=== PATIENT | male | born 1940 | race Caucasian/White ===

== ENCOUNTER 2016-11-14 17:55 | Emergency (ER) | payer OTHER ==
[2016-11-14] MEDS ORDERED: SODIUM CHLORIDE 0.9% 1,000 ML IV ONE (19:45)
[2016-11-14] MEDS ORDERED: IPRATROPIUM/ALBUTEROL 3 ML NEB INH STA (19:45)
[2016-11-14] MEDS ORDERED: SODIUM CHLORIDE 0.9% 500 ML IV ONE (19:45)
[2016-11-14] MEDS ORDERED: DEXAMETHASONE 10 MG/ML VIAL IVP STA (19:46)
[2016-11-14] MEDS ORDERED: DEXAMETHASONE 10 MG/ML VIAL ONE (19:48)
[2016-11-14] MEDS ORDERED: IPRATROPIUM/ALBUTEROL 3 ML NEB INH ONE (20:17)
[2016-11-14] MEDS ORDERED: ALBUTEROL NEB 2.5 MG/3 ML INH STA (21:14)
[2016-11-14] MEDS ORDERED: ALBUTEROL NEB 2.5 MG/3 ML INH ONE (21:44)
== END 2016-11-14 22:18 | disposition home or self-care (01) ==
DX: J06.9 Acute upper respiratory infection, unspecified (principal); B97.89 Other viral agents as the cause of diseases classified elsewhere; E11.9 Type 2 diabetes mellitus without complications; I25.10 Atherosclerotic heart disease of native coronary artery without angina pectoris; I25.2 Old myocardial infarction; J44.9 Chronic obstructive pulmonary disease, unspecified; Z79.899 Other long term (current) drug therapy
CPT/HCPCS: 36415; 71020; 80048; 85025; 85610; 87275; 87276; 94640; 96374; 99283; 99284; J7613; J7620

== ENCOUNTER 2016-11-17 | Outpatient (CLI) | payer OTHER | END 2016-11-17 05:53 | disposition critical access hospital (66) | CPT/HCPCS: A0425; A0427 ==

== ENCOUNTER 2016-11-17 06:05 | Inpatient (IN) | payer MEDICARE, OTHER ==
[2016-11-17] MEDS ORDERED: METOPROLOL 5 MG/5 ML VIAL IVP STA (07:13)
[2016-11-17] MEDS ORDERED: METOPROLOL 5 MG/5 ML VIAL IVP ONE (07:18)
[2016-11-17] MEDS ORDERED: methylPREDNISolone SUCCINATE 125 MG/2 ML VIAL IVP STA (07:20)
[2016-11-17] MEDS ORDERED: methylPREDNISolone SUCCINATE 125 MG/2 ML VIAL IVP ONE (07:21)
[2016-11-17] MEDS ORDERED: SODIUM CHLORIDE 0.9% 1,000 ML IV ONE (07:52)
[2016-11-17] MEDS ORDERED: OSELTAMIVIR 75 MG CAPSULE PO STA (08:06)
[2016-11-17] MEDS ORDERED: OSELTAMIVIR 75 MG CAPSULE PO ONE (08:13)
[2016-11-17] MEDS ORDERED: IOPAMIDOL-300 100 ML VIAL IVP ONE (08:19)
[2016-11-17] MEDS ORDERED: BENZONATATE 100 MG CAPSULE PO PRN (09:57)
[2016-11-17] MEDS ORDERED: ACETAMINOPHEN 325 MG TABLET PO PRN (09:59)
[2016-11-17] MEDS ORDERED: PROCHLORPERAZINE 10 MG/2 ML VIAL IVP PRN (09:59)
[2016-11-17] MEDS ORDERED: HYDROcod/ACETAM 5/325 MG TABLET PO PRN (09:59)
[2016-11-17] MEDS ORDERED: IPRATROPIUM/ALBUTEROL 3 ML NEB INH PRN (09:59)
[2016-11-17] MEDS ORDERED: HYDROcod/ACETAM 10 MG/325 MG TABLET PO PRN (09:59)
[2016-11-17] MEDS ORDERED: ONDANSETRON 4 MG/2 ML VIAL IVP PRN (09:59)
[2016-11-17] MEDS: IPRATROPIUM/ALBUTEROL 3 ML NEB INH SCH ×3 (12:30→20:37)
[2016-11-17] MEDS: methylPREDNISolone SUCCINATE 40 MG/ML VIAL IVP SCH ×3 (13:17→22:19)
[2016-11-17] MEDS: WARFARIN 5 MG TABLET PO SCH (13:18)
[2016-11-17] MEDS: DOXYCYCLINE 100 MG TABLET PO SCH ×2 (13:18→22:19)
[2016-11-17] MEDS: CARVEDILOL 12.5 MG TABLET PO SCH (13:18)
[2016-11-17] MEDS: SPIRONOLACTONE 25 MG TABLET PO SCH (13:18)
[2016-11-17] MEDS: SODIUM CHLORIDE FLUSH 0.9% 10 ML SYRINGE IVP SCH ×2 (13:26→22:21)
[2016-11-17] MEDS: INSULIN ASPART 300 UNIT/3 ML PEN SUBQ SCH ×3 (13:28→22:20)
[2016-11-17] MEDS: FORMOTEROL FUMARATE NEB 20 MCG/2 ML INH SCH (20:37)
[2016-11-17] MEDS: BUDESONIDE 0.5 MG/2 ML NEB INH SCH (20:37)
[2016-11-17] MEDS: ATORVASTATIN 40 MG TABLET PO SCH (22:16)
[2016-11-17] MEDS: MESALAMINE 400 MG CAPSULE PO SCH (22:17)
[2016-11-17] MEDS: OSELTAMIVIR 75 MG CAPSULE PO SCH (22:18)
[2016-11-17] MEDS: GABAPENTIN 300 MG CAPSULE PO SCH (22:18)
[2016-11-18] MEDS: methylPREDNISolone SUCCINATE 40 MG/ML VIAL IVP SCH ×3 (06:14→21:26)
[2016-11-18] MEDS: PANTOPRAZOLE 40 MG TABLET PO SCH (06:14)
[2016-11-18] MEDS: MESALAMINE 400 MG CAPSULE PO SCH ×3 (06:21→14:08)
[2016-11-18] MEDS: SODIUM CHLORIDE FLUSH 0.9% 10 ML SYRINGE IVP SCH ×3 (06:23→21:28)
[2016-11-18] MEDS: SODIUM CHLORIDE FLUSH 0.9% 10 ML SYRINGE IVP PRN ×3 (06:24→21:28)
[2016-11-18] MEDS: INSULIN ASPART 300 UNIT/3 ML PEN SUBQ SCH ×5 (08:10→21:27)
[2016-11-18] MEDS: DOXYCYCLINE 100 MG TABLET PO SCH ×2 (09:58→21:25)
[2016-11-18] MEDS: CARVEDILOL 12.5 MG TABLET PO SCH (09:58)
[2016-11-18] MEDS: FUROSEMIDE 40 MG TABLET PO SCH (09:58)
[2016-11-18] MEDS: ASPIRIN EC 81 MG TABLET PO SCH (09:58)
[2016-11-18] MEDS: OSELTAMIVIR 75 MG CAPSULE PO SCH ×2 (09:59→21:26)
[2016-11-18] MEDS: POLYETHYLENE GLYCOL 3350 17 GM PACKET PO SCH (09:59)
[2016-11-18] MEDS: SPIRONOLACTONE 25 MG TABLET PO SCH (09:59)
[2016-11-18] MEDS: GABAPENTIN 300 MG CAPSULE PO SCH ×2 (09:59→21:25)
[2016-11-18] MEDS: BUDESONIDE 0.5 MG/2 ML NEB INH SCH ×2 (10:35→20:53)
[2016-11-18] MEDS: IPRATROPIUM/ALBUTEROL 3 ML NEB INH SCH ×4 (10:35→20:54)
[2016-11-18] MEDS: FORMOTEROL FUMARATE NEB 20 MCG/2 ML INH SCH ×2 (10:36→20:54)
[2016-11-18] MEDS: LISINOPRIL 20 MG TABLET PO SCH (12:25)
[2016-11-18] MEDS ORDERED: INSULIN ASPART 300 UNIT/3 ML PEN SUBQ ONE (13:00)
[2016-11-18] MEDS: WARFARIN 5 MG TABLET PO SCH (14:04)
[2016-11-18] MEDS ORDERED: INSULIN GLARGINE 300 UNIT/3 ML PEN SUBQ SCH (21:00)
[2016-11-18] MEDS: ATORVASTATIN 40 MG TABLET PO SCH (21:25)
[2016-11-19] MEDS: SODIUM CHLORIDE FLUSH 0.9% 10 ML SYRINGE IVP SCH ×3 (06:18→21:52)
[2016-11-19] MEDS: PANTOPRAZOLE 40 MG TABLET PO SCH (06:18)
[2016-11-19] MEDS: methylPREDNISolone SUCCINATE 40 MG/ML VIAL IVP SCH ×3 (06:18→21:52)
[2016-11-19] MEDS: IPRATROPIUM/ALBUTEROL 3 ML NEB INH SCH ×4 (07:01→20:53)
[2016-11-19] MEDS: BUDESONIDE 0.5 MG/2 ML NEB INH SCH ×2 (07:01→20:53)
[2016-11-19] MEDS: FORMOTEROL FUMARATE NEB 20 MCG/2 ML INH SCH ×2 (07:02→20:53)
[2016-11-19] MEDS: INSULIN ASPART 300 UNIT/3 ML PEN SUBQ SCH ×7 (08:30→20:36)
[2016-11-19] MEDS: OSELTAMIVIR 75 MG CAPSULE PO SCH ×2 (08:31→20:37)
[2016-11-19] MEDS: GABAPENTIN 300 MG CAPSULE PO SCH ×2 (08:31→20:37)
[2016-11-19] MEDS: ASPIRIN EC 81 MG TABLET PO SCH (08:31)
[2016-11-19] MEDS: MESALAMINE 400 MG CAPSULE PO SCH ×2 (08:32→20:39)
[2016-11-19] MEDS: SPIRONOLACTONE 25 MG TABLET PO SCH (08:32)
[2016-11-19] MEDS: FUROSEMIDE 40 MG TABLET PO SCH (08:32)
[2016-11-19] MEDS: CARVEDILOL 12.5 MG TABLET PO SCH (08:32)
[2016-11-19] MEDS: DOXYCYCLINE 100 MG TABLET PO SCH ×2 (08:32→20:37)
[2016-11-19] MEDS: POLYETHYLENE GLYCOL 3350 17 GM PACKET PO SCH (08:33)
[2016-11-19] MEDS: LISINOPRIL 20 MG TABLET PO SCH (08:43)
[2016-11-19] MEDS: WARFARIN 5 MG TABLET PO SCH (11:47)
[2016-11-19] MEDS: SODIUM CHLORIDE FLUSH 0.9% 10 ML SYRINGE IVP PRN ×2 (14:55→21:52)
[2016-11-19] MEDS: ATORVASTATIN 40 MG TABLET PO SCH (20:37)
[2016-11-19] MEDS: INSULIN GLARGINE 300 UNIT/3 ML PEN SUBQ SCH (20:37)
[2016-11-19] MEDS ORDERED: MELATONIN 50 MG PO PRN (23:50)
[2016-11-20] MEDS: PANTOPRAZOLE 40 MG TABLET PO SCH (06:19)
[2016-11-20] MEDS: SODIUM CHLORIDE FLUSH 0.9% 10 ML SYRINGE IVP SCH ×3 (06:19→21:39)
[2016-11-20] MEDS: methylPREDNISolone SUCCINATE 40 MG/ML VIAL IVP SCH ×3 (06:19→21:36)
[2016-11-20] MEDS: INSULIN ASPART 300 UNIT/3 ML PEN SUBQ SCH ×7 (08:13→21:41)
[2016-11-20] MEDS: ASPIRIN EC 81 MG TABLET PO SCH (08:17)
[2016-11-20] MEDS: GABAPENTIN 300 MG CAPSULE PO SCH ×2 (08:18→21:36)
[2016-11-20] MEDS: FUROSEMIDE 40 MG TABLET PO SCH (08:18)
[2016-11-20] MEDS: DOXYCYCLINE 100 MG TABLET PO SCH ×2 (08:18→21:36)
[2016-11-20] MEDS: OSELTAMIVIR 75 MG CAPSULE PO SCH ×2 (08:18→21:36)
[2016-11-20] MEDS: CARVEDILOL 12.5 MG TABLET PO SCH (08:18)
[2016-11-20] MEDS: POLYETHYLENE GLYCOL 3350 17 GM PACKET PO SCH (08:19)
[2016-11-20] MEDS: SPIRONOLACTONE 25 MG TABLET PO SCH (08:26)
[2016-11-20] MEDS: LISINOPRIL 20 MG TABLET PO SCH (08:26)
[2016-11-20] MEDS: MESALAMINE 400 MG CAPSULE PO SCH ×2 (08:32→21:35)
[2016-11-20] MEDS: FORMOTEROL FUMARATE NEB 20 MCG/2 ML INH SCH ×2 (09:10→20:20)
[2016-11-20] MEDS: IPRATROPIUM/ALBUTEROL 3 ML NEB INH SCH ×4 (09:10→20:20)
[2016-11-20] MEDS: BUDESONIDE 0.5 MG/2 ML NEB INH SCH ×2 (09:10→20:20)
[2016-11-20] MEDS: WARFARIN 5 MG TABLET PO SCH (13:11)
[2016-11-20] MEDS ORDERED: MELATONIN 5 MG PO PRN (17:55)
[2016-11-20] MEDS: ATORVASTATIN 40 MG TABLET PO SCH (21:36)
[2016-11-20] MEDS: INSULIN GLARGINE 300 UNIT/3 ML PEN SUBQ SCH (21:40)
[2016-11-21] MEDS: methylPREDNISolone SUCCINATE 40 MG/ML VIAL IVP SCH ×2 (05:23→13:31)
[2016-11-21] MEDS: SODIUM CHLORIDE FLUSH 0.9% 10 ML SYRINGE IVP SCH ×2 (05:24→13:31)
[2016-11-21] MEDS: PANTOPRAZOLE 40 MG TABLET PO SCH (06:08)
[2016-11-21] MEDS: BUDESONIDE 0.5 MG/2 ML NEB INH SCH (07:30)
[2016-11-21] MEDS: IPRATROPIUM/ALBUTEROL 3 ML NEB INH SCH ×2 (07:30→11:20)
[2016-11-21] MEDS: FORMOTEROL FUMARATE NEB 20 MCG/2 ML INH SCH (07:30)
[2016-11-21] MEDS: INSULIN ASPART 300 UNIT/3 ML PEN SUBQ SCH ×4 (08:26→12:26)
[2016-11-21] MEDS: SPIRONOLACTONE 25 MG TABLET PO SCH (08:28)
[2016-11-21] MEDS: CARVEDILOL 12.5 MG TABLET PO SCH (08:28)
[2016-11-21] MEDS: OSELTAMIVIR 75 MG CAPSULE PO SCH (08:28)
[2016-11-21] MEDS: ASPIRIN EC 81 MG TABLET PO SCH (08:28)
[2016-11-21] MEDS: DOXYCYCLINE 100 MG TABLET PO SCH (08:28)
[2016-11-21] MEDS: GABAPENTIN 300 MG CAPSULE PO SCH (08:28)
[2016-11-21] MEDS: LISINOPRIL 20 MG TABLET PO SCH (08:28)
[2016-11-21] MEDS: FUROSEMIDE 40 MG TABLET PO SCH (08:28)
[2016-11-21] MEDS: POLYETHYLENE GLYCOL 3350 17 GM PACKET PO SCH (08:29)
[2016-11-21] MEDS: MESALAMINE 400 MG CAPSULE PO SCH (08:48)
[2016-11-21] MEDS: WARFARIN 5 MG TABLET PO SCH (10:58)
== END 2016-11-21 16:30 | disposition home or self-care (01) | DRG 190 ==
DX: J44.1 Chronic obstructive pulmonary disease with (acute) exacerbation (principal); I44.7 Left bundle-branch block, unspecified; I48.0 Paroxysmal atrial fibrillation; J96.01 Acute respiratory failure with hypoxia; J44.9 Chronic obstructive pulmonary disease, unspecified; K50.90 Crohn's disease, unspecified, without complications; R91.8 Other nonspecific abnormal finding of lung field; W19.XXXA Unspecified fall, initial encounter; J10.1 Influenza due to other identified influenza virus with other respiratory manifestations; R09.02 Hypoxemia; I48.91 Unspecified atrial fibrillation; I25.2 Old myocardial infarction; I50.9 Heart failure, unspecified; E11.9 Type 2 diabetes mellitus without complications; I71.2 Thoracic aortic aneurysm, without rupture; I25.10 Atherosclerotic heart disease of native coronary artery without angina pectoris; Z79.01 Long term (current) use of anticoagulants; Z79.899 Other long term (current) drug therapy; Z86.73 Personal history of transient ischemic attack (TIA), and cerebral infarction without residual deficits; Z79.84 Long term (current) use of oral hypoglycemic drugs; Z79.82 Long term (current) use of aspirin; Z87.891 Personal history of nicotine dependence

== ENCOUNTER 2017-05-24 10:32 | Emergency (ER) | payer MEDICARE ==
--- NOTE | 2017-05-24 11:05 | XRAY Preliminary Report ---
Exam: XR Chest 2 View PA/LAT IMPRESSION: 1. No acute abnormality of the chest. 2. Stable hyperinflation. 3. Peribronchial thickening, left greater than right, without significant change. [facility] SITE ID: [id number]
--- NOTE | 2017-05-24 11:07 | XRAY Report ---
EXAM: CHEST RADIOGRAPHY EXAM DATE: 05/24/2017 10:51 AM. CLINICAL HISTORY: Shortness of breath. COMPARISON: Single view 11/17/2016. Most recent two-view exam 11/14/2016. TECHNIQUE: 2 views. FINDINGS: Lungs/Pleura: Stable bilateral pulmonary hyperinflation. No acute infiltrate, pleural effusion or pne umothorax. Mild bilateral central and left infrahilar peribronchial thickening. Mediastinum: Heart and mediastinal contours are unremarkable. Other: None. IMPRESSION: 1. No acute abnormality of the chest. 2. Stable hyperinflation. 3. Peribronchial thickening, left greater than right, without significant change. [facility] Referring Provider Line: [phone] SITE ID: [id number]
--- NOTE | 2017-05-24 12:24 | ED Physician Documentation ---
PD HPI URI - Stated complaint Stated Complaint: SOA - Chief complaint Chief Complaint: Resp - History obtained from History obtained from: Patient - History of Present Illness Timing - onset: How many weeks ago (1) Timing duration: Weeks (1) Timing details: Gradual onset, Still present Associated symptoms: Chills, Sore throat, Productive cough, Dyspnea. No: Chest pain, NVD Contributing factors: No: Sick contact, Travel, Immunocompromised Improves by: MDI/nebulizer. No: Medication Worsened by: Activity Similar symptoms before: Diagnosis (COPD, bronchitis, pneumonia.) Recently seen: Clinic (saw PMD yesterday and got Rx for medrol dose pack, but feeling increased sputum and dyspnea today.) Review of Systems Constitutional: reports: Chills, Myalgias. denies: Fever Nose: denies: Rhinorrhea / runny nose, Congestion Throat: denies: Sore throat Cardiac: denies: Chest pain / pressure Respiratory: reports: Dyspnea, Cough, Wheezing GI: denies: Vomiting, Diarrhea Skin: denies: Rash Musculoskeletal: denies: Extremity swelling PD PAST MEDICAL HISTORY - Past Medical History Cardiovascular: Coronary artery disease, [place] Respiratory: COPD Neuro: None Endocrine/Autoimmune: Type 2 diabetes GI: GERD : Nocturia, Frequency - Past Surgical History Past Surgical History: Yes - Present Medications Home Medications: Ambulatory Orders Medication Instructions Recorded Confirmed Carvedilol 12.5 mg PO DAILY 11/14/16 05/24/17 Lisinopril 40 mg PO DAILY 11/14/16 05/24/17 Spironolactone [Aldactone] 25 mg PO DAILY 11/14/16 05/24/17 Albuterol 2.5 mg INH BID 11/17/16 05/24/17 Albuterol Sulfate 2 mg PO TID 11/17/16 05/24/17 Aspirin [Aspirin EC] 81 mg PO DAILY 11/17/16 05/24/17 Atorvastatin Calcium [Lipitor] 40 mg PO QPM 11/17/16 05/24/17 Furosemide [Lasix] 40 mg PO DAILY 11/17/16 05/24/17 Gabapentin [Neurontin] 300 mg PO BID 11/17/16 05/24/17 Glipizide [Glipizide ER] 10 mg PO BID 11/17/16 05/24/17 Ipratropium/Albuterol [Combivent 1 puffs INH QID 11/17/16 05/24/17 Respimat] Metformin HCl [Glucophage] 1,000 mg PO BID 11/17/16 05/24/17 Zinc 50 mg PO DAILY 11/17/16 05/24/17 Apixaban [Eliquis] 1 tab PO BID 05/24/17 05/24/17 Benzonatate [Tessalon] 100 mg PO TID PRN #25 capsule 05/24/17 Doxycycline Hyclate 100 mg PO BID #14 tablet 05/24/17 Ipratropium [Atrovent] 0.2 mg INH TID #30 neb 05/24/17 Methylprednisolone 1 tab PO TID 05/24/17 05/24/17 - Allergies Allergies/Adverse Reactions: Allergies Allergy/AdvReac Type Severity Reaction Status Date / Time Sulfa (Sulfonamide Allergy Unknown Verified 05/24/17 11:13 Antibiotics) - Social History Does the pt smoke?: No Smoking Status: Never smoker Does the pt drink ETOH?: Yes Does the pt have substance abuse?: No - Immunizations Immunizations are current?: Yes - POLST Patient has POLST: No PD ED PE NORMAL - Vitals Vital signs reviewed: Yes - General General: Alert and oriented X 3, No acute distress, Well developed/nourished - HEENT HEENT: Ears normal, Pharynx benign - Neck Neck: Supple, no meningeal sign, No adenopathy - Cardiac Cardiac: RRR, No murmur - Respiratory Respiratory: No respiratory distress, Other (scattered wheezes; no coarse sounds. no wrok of breathing. ) - Abdomen Abdomen: Soft, Non tender - Derm Derm: Normal color, Warm and dry - Neuro Neuro: Alert and oriented X 3, No motor deficit, Normal speech Results - Vitals Vitals: Vital Signs - 24 hr 05/24/17 05/24/17 05/24/17 10:37 11:34 12:48 Temperature 36.6 C 37.2 C Heart Rate 72 65 72 Respiratory 20 18 Rate Blood Pressure 186/84 H 151/72 H O2 Saturation 93 95 95 Oxygen O2 Source Nasal cannula - Rads (name of study) chest Radiology: Prelim report reviewed PD MEDICAL DECISION MAKING - ED course Complexity details: reviewed results, considered differential (not looking too bad and sats adequate. CXR without infiltrate.), d/w patient Departure - Departure Disposition: 01 Home, Self Care Clinical Impression: Moderate COPD (chronic obstructive pulmonary disease), Bronchitis Dyspnea Qualifiers: Dyspnea type: dyspnea on exertion Qualified Code(s): R06.09 - Other forms of dyspnea Condition: Stable Record reviewed to determine appropriate education?: Yes Instructions: ED COPD Flare, ED Upper Resp Infec Abx Tx Follow-Up: Urbano Friedman MD [Primary Care Provider] - Prescriptions: Ipratropium [Atrovent] 0.2 mg INH TID #30 neb Doxycycline Hyclate 100 mg PO BID #14 tablet Benzonatate [Tessalon] 100 mg PO TID PRN #25 capsule PRN Reason: Cough Comments: Continue usual medications. Add ipratropium to your albuterol for nebulizer 2- 3 times a day. Continue the steroid prescription from your primary care provider. Add doxycycline antibiotic for presumed bacterial infection. Use Tessalon if needed for cough. Recheck if not improving over the next few days and return sooner if worse. Discharge Date/Time: 05/24/17 12:56
[2017-05-24] MEDS ORDERED: BENZONATATE 100 MG CAPSULE PO STA (12:36)
[2017-05-24] MEDS ORDERED: DEXAMETHASONE 10 MG/ML VIAL PO STA (12:36)
[2017-05-24] MEDS ORDERED: DEXAMETHASONE 10 MG/ML VIAL ONE (12:48)
[2017-05-24] MEDS ORDERED: BENZONATATE 100 MG CAPSULE PO ONE (12:48)
[2017-05-24 12:50] VITALS: BP 151/72
== END 2017-05-24 12:56 | disposition home or self-care (01) ==
LOC: ED 10:32
DX: J44.9 Chronic obstructive pulmonary disease, unspecified (principal); I25.10 Atherosclerotic heart disease of native coronary artery without angina pectoris; I25.2 Old myocardial infarction; E11.9 Type 2 diabetes mellitus without complications; Z79.84 Long term (current) use of oral hypoglycemic drugs; K21.9 Gastro-esophageal reflux disease without esophagitis
CPT/HCPCS: 71020; 99283; A9270

== ENCOUNTER 2020-02-09 09:57 | Outpatient (CLI) | payer MEDICARE, OTHER ==
[2020-02-09 14:17] LABS: BASOPHILS % (AUTO) 0.6 %; EOSINOPHILS # (AUTO) 0.2 10^3/uL (0.0-0.7); EOSINOPHILS % (AUTO) 2.4 %; HGB - HEMOGLOBIN 15.7 g/dL (14.0-18.0); LYMPHOCYTES # (AUTO) 1.4 10^3/uL (1.5-3.5); LYMPHOCYTES % (AUTO) 20.8 %; MEAN CORPUSCULAR HGB CONC 32.2 g/dL (32.0-36.0); MEAN PLATELET VOLUME 10.9 fL (7.4-11.4); MONOCYTES # (AUTO) 0.6 10^3/uL (0.0-1.0); MONOCYTES % (AUTO) 8.2 %; NEUTROPHILS # (AUTO) 4.5 10^3/uL (1.5-6.6); NEUTROPHILS % (AUTO) 67.7 %; PLT - PLATELET COUNT 210 10^3/uL (130-450); RED BLOOD COUNT 5.42 10^6/uL (4.70-6.10); RED CELL DISTRIBUTION WIDTH 13.9 % (12.0-15.0); WHITE BLOOD COUNT 6.7 x10^3/uL (4.8-10.8)
[2020-02-09 14:19] LABS: ALBUMIN/GLOBULIN RATIO 1.3 (1.0-2.2); BILIRUBIN,TOTAL 0.9 mg/dL (0.2-1.0); CALCIUM 9.4 mg/dL (8.5-10.3); CREATININE 0.7 mg/dL (0.6-1.2); TOTAL PROTEIN 7.1 g/dL (6.7-8.2)
[2020-02-09 14:36] LABS: THYROID STIMULATING HORMONE 3.77 uIU/mL (0.34-5.60)
[2020-02-09 14:38] LABS: FREE T3 3.09 pg/mL (2.5-3.9); FREE T4 (FREE THYROXINE) 0.84 ng/dL (0.58-1.64)
[2020-02-09 14:49] LABS: HB2 TOTAL 16.3 g/dL; HEMOGLOBIN A1C 0.74 g/dL; HEMOGLOBIN A1C % 6.3 % (4.6-6.2)
--- NOTE | 2020-02-10 00:05 | XRAY Report ---
Reason: RESPIRATORY CRACKLES, COPD Procedure Date: 02/09/2020 Accession Number: [id number] / [id number] Procedure: WCP - Chest 2 View X-Ray CPT Code: 46089 Final Report FULL RESULT: EXAM: CHEST RADIOGRAPHY EXAM DATE: 02/09/2020 09:57 AM. CLINICAL HISTORY: RESPIRATORY CRACKLES, COPD. COMPARISON: CHEST 2 VIEW PA/LAT 05/24/2017 10:42 AM. TECHNIQUE: 2 views. FINDINGS: Lungs/Pleura: No consolidation, focal airspace disease, pleural effusion or pneumothorax. Minimal right base atelectasis or scarring. Hyperinflated lungs. Mediastinum: Heart and mediastinal contours are unremarkable. IMPRESSION: COPD. No acute cardiopulmonary disease seen. [facility]
== END 2020-02-09 09:58 | disposition home or self-care (01) ==
LOC: DI.WCP 09:57
PROVIDERS: ATTEND Family Medicine
DX: J44.9 Chronic obstructive pulmonary disease, unspecified (principal); R09.89 Other specified symptoms and signs involving the circulatory and respiratory systems; E11.51 Type 2 diabetes mellitus with diabetic peripheral angiopathy without gangrene; I48.20 Chronic atrial fibrillation, unspecified; N40.0 Benign prostatic hyperplasia without lower urinary tract symptoms
CPT/HCPCS: 36415; 71046; 80053; 83036; 83880; 84439; 84443; 84481; 85025

== ENCOUNTER 2020-04-12 09:21 | Outpatient (CLI) | payer OTHER ==
[2020-04-12 12:52] LABS: CHOL/HDL RATIO 3.7 (<5.0); CHOLESTEROL 157 mg/dL; HDL CHOLESTEROL 42 mg/dL; LDL CHOLESTEROL,CALCULATED 101 mg/dL; LDL/HDL RATIO 2.4 (<3.6); VLDL CHOLESTEROL 14 mg/dL
== END 2020-04-12 23:59 | disposition home or self-care (01) ==
LOC: LAB.WCP 09:21
PROVIDERS: ATTEND Family Medicine
DX: E78.5 Hyperlipidemia, unspecified (principal)
CPT/HCPCS: 36415; 80061; 83721

== ENCOUNTER 2020-09-03 07:00 | Outpatient (CLI) | payer OTHER ==
[2020-09-03 18:19] LABS: CALCIUM 10.2 mg/dL (8.5-10.3); CREATININE 0.8 mg/dL (0.6-1.2)
[2020-09-03 19:55] LABS: HEMOGLOBIN A1c% 6.2 % (4.27-6.07)
== END 2020-09-03 23:59 | disposition home or self-care (01) ==
LOC: LAB.WCP 07:00
PROVIDERS: ATTEND Nurse Practitioner Family
DX: E11.59 Type 2 diabetes mellitus with other circulatory complications (principal)
CPT/HCPCS: 36415; 80048; 83036

== ENCOUNTER 2020-10-05 15:02 | Outpatient (CLI) | payer OTHER ==
--- NOTE | 2020-10-05 15:25 | XRAY Report ---
PROCEDURE: Chest 2 View X-Ray INDICATIONS: COUGH, COPD TECHNIQUE: 2 view(s) of the chest. COMPARISON: None. FINDINGS: Surgical changes and devices: None. Lungs and pleura: Hyperexpanded lungs with flattened hemidiaphragms, indicative of COPD. Mild-to-mod erate emphysematous changes in the lung apices. No focal consolidation. No pleural effusion or pneumo thorax. Mediastinum: Mediastinal contours are normal. Heart size is normal. Bones and chest wall: No suspicious bony abnormalities. Soft tissues appear unremarkable. IMPRESSION: No acute process demonstrated. Findings of COPD and mild to moderate emphysematous allison e. Reviewed by: Adalid Perez MD on 10/05/2020 3:24 PM PST Approved by: Adalid Perez MD on 10/05/2020 3:24 PM PST Station ID: [id number]
--- OUTSIDE RECORDS SUMMARY | 2020-10-06 10:41 | EXTERNAL MEDICAL SUMMARY RPT | Continuity of Care Document ---
:1940 Demographics Phone Unavailable Preferred Language Indonesian Marital Status Unknown Jainism Affiliation Unknown Race Unknown Ethnic Group Unknown Author Organization [facility] Address [address] [place] [address] Phone Care Team Providers Name Role Phone FITNESS COACH Unavailable Unavailable COLLADO Unavailable Unavailable Problems date description facility 2020-09-03 00:00 TYPE 2 DIABETES W DIABETIC [facility] PERIPHERAL ANGIOPATH W/O GANGRENE 2020-09-03 00:00:00 [facility] 2020-09-03 00:00:00 Basic Met[facility] (BMP) [facility] 2020-09-03 00:00:00 HGBA1C [facility] 2020-09-03 00:00:00 Prepatellar bursitis, right [facility] 2020-09-03 00:00:00 Alcohol [facility] 2020-09-03 00:00:00 Health-related behavior [facility] 2020-09-03 00:00:00 [facility] 2020-09-03 00:00:00 Exercise [facility] 2020-09-03 00:00:00 Never smoker [facility] 2020-09-03 00:00:00 Alcohol use [facility] 2020-09-03 00:00:00 Tobacco smoking status NHIS [facility] 2020-09-03 07:00 TYPE 2 DIABETES W DIABETIC [facility] PERIPHERAL ANGIOPATH W/O GANGRENE Allergies date description facility METHYLPHENIDATE [facility]CL [facility] ASPIRIN [facility] CEPHALEXIN [facility] ER[facility]TH[facility]YCIN BASE [facility] CIPROFLOXACIN [facility] No Known Drug Allergies [facility] Medications date description facility 2020-08-31 00:00:00 [facility] 2020-08-31 00:00:00 null [facility] 2020-08-31 00:00:00 MESALAMINE [facility] 2020-08-31 00:00:00 [facility] Procedures date description facility 2020-09-03 00:00:00 Basic Metabolic Panel (BMP) [facility] date description facility 2020-09-03 00:00:00 HGBA1C [facility] date description facility 2020-09-03 00[facility]00[facility]00 [facility] Results Social History date description facility 2020-09-03 00:00:00 [facility] Social History date description facility 2020-09-03 00:00:00 Never smoker [facility] date description facility [id number]
== END 2020-10-05 15:03 | disposition home or self-care (01) ==
LOC: DI.WCP 15:02
PROVIDERS: ATTEND Nurse Practitioner Family
DX: J43.9 Emphysema, unspecified (principal); R05 Cough

== ENCOUNTER 2021-04-04 08:00 | Outpatient (CLI) | payer OTHER ==
[2021-04-04 17:51] LABS: BASOPHILS # (AUTO) 0.1 10^3/uL (0.0-0.1); BASOPHILS % (AUTO) 0.6 %; EOSINOPHILS # (AUTO) 0.2 10^3/uL (0.0-0.7); EOSINOPHILS % (AUTO) 2.1 %; HCT - HEMATOCRIT 48.3 % (42.0-52.0); HGB - HEMOGLOBIN 15.6 g/dL (14.0-18.0); LYMPHOCYTES # (AUTO) 1.8 10^3/uL (1.5-3.5); LYMPHOCYTES % (AUTO) 22.3 %; MEAN CORPUSCULAR HEMOGLOBIN 28.5 pg (27.0-31.0); MEAN CORPUSCULAR HGB CONC 32.3 g/dL (32.0-36.0); MEAN CORPUSCULAR VOLUME 88.1 fL (80.0-94.0); MEAN PLATELET VOLUME 10.6 fL (7.4-11.4); MONOCYTES # (AUTO) 0.8 10^3/uL (0.0-1.0); MONOCYTES % (AUTO) 9.2 %; NEUTROPHILS # (AUTO) 5.3 10^3/uL (1.5-6.6); NEUTROPHILS % (AUTO) 65.4 %; PLT - PLATELET COUNT 221 10^3/uL (130-450); RED BLOOD COUNT 5.48 10^6/uL (4.70-6.10); RED CELL DISTRIBUTION WIDTH 13.7 % (12.0-15.0); WHITE BLOOD COUNT 8.1 x10^3/uL (4.8-10.8)
[2021-04-04 18:07] LABS: ALBUMIN 4.3 g/dL (3.2-5.5); ALBUMIN/GLOBULIN RATIO 1.3 (1.0-2.2); ALKALINE PHOSPHATASE 79 IU/L (42-121); ALT ALANINE AMINOTRANSFERASE 25 IU/L (10-60); AST ASPARTATE AMINOTRANSFERASE 17 IU/L (10-42); BILIRUBIN,TOTAL 0.9 mg/dL (0.2-1.0); BUN - BLOOD UREA NITROGEN 17 mg/dL (6-20); CALCIUM 9.6 mg/dL (8.5-10.3); CARBON DIOXIDE - CO2 30 mmol/L (21-32); CHLORIDE 99 mmol/L (101-111); CHOL/HDL RATIO 3.3 (<5.0); CHOLESTEROL 123 mg/dL; CREATININE 0.7 mg/dL (0.6-1.2); GFR - MDRD 109 (>89); GLUCOSE 167 mg/dL (70-100); HDL CHOLESTEROL 37 mg/dL; LDL CHOLESTEROL,CALCULATED 60 mg/dL; LDL/HDL RATIO 1.6 (<3.6); POTASSIUM 3.9 mmol/L (3.5-5.0); SODIUM 137 mmol/L (135-145); TOTAL PROTEIN 7.5 g/dL (6.7-8.2); TRIGLYCERIDES 129 mg/dL; VLDL CHOLESTEROL 26 mg/dL
[2021-04-04 18:08] LABS: CREATININE,URINE 70.4 mg/dL; MICROALBUM/CREATININE RATIO,UR 235.8 ug/mg (<30.0); MICROALBUMIN,URINE 16.6 mg/dL (0-300.0)
[2021-04-04 18:21] LABS: THYROID STIMULATING HORMONE 5.41 uIU/mL (0.34-5.60)
[2021-04-04 20:33] LABS: ESTIMATED AVERAGE GLUCOSE 157 mg/dL (70-100); HEMOGLOBIN A1c% 7.1 % (4.27-6.07)
== END 2021-04-04 08:01 | disposition home or self-care (01) ==
LOC: LAB.WCP 08:00
PROVIDERS: ATTEND Family Medicine
DX: E11.59 Type 2 diabetes mellitus with other circulatory complications (principal)
CPT/HCPCS: 36415; 80053; 80061; 82043; 82570; 83036; 83721; 84443; 85025

== ENCOUNTER 2022-03-23 10:05 | Emergency (ER) | payer MEDICARE, OTHER ==
[2022-03-23] MEDS ORDERED: ASPIRIN CHEW 81 MG TABLET PO STA (10:32)
[2022-03-23] MEDS ORDERED: NITROGLYCERIN SL 0.4 MG TABLET SL STA (10:32)
--- NOTE | 2022-03-23 10:33 | ED Physician Documentation ---
PD HPI CHEST PAIN - Stated complaint Stated Complaint: CHEST PAIN - Chief complaint Chief Complaint: Cardiac - History obtained from History obtained from: Patient, Family - History of Present Illness Timing - onset: How many hours ago (5 /2), Today Timing - onset during: Rest Timing - duration: Hours Timing - details: Abrupt onset, Still present Quality: Pressure, Tightness. No: Sharp Location: Substernal, Left chest Associated symptoms: Shortness of air. No: Nausea, Palpitations, Cough Similar symptoms before: Has not had sx before Recently seen: Not recently seen Review of Systems Constitutional: denies: Fever, Chills Nose: denies: Rhinorrhea / runny nose, Congestion Throat: denies: Sore throat Cardiac: reports: Palpitations. denies: Pedal edema, Calf pain Respiratory: denies: Cough GI: denies: Abdominal Pain, Nausea, Vomiting, Diarrhea Neurologic: denies: Generalized weakness, Near syncope, Confused, Headache PD PAST MEDICAL HISTORY - Past Medical History Cardiovascular: Hypertension, Coronary artery disease, Atrial fibrillation (sees Dr. Sotomayor at [facility] ) Respiratory: COPD Endocrine/Autoimmune: Type 2 diabetes GI: GERD : Nocturia, Frequency - Past Surgical History Past Surgical History: Yes - Present Medications Home Medications: Ambulatory Orders Medication Instructions Recorded Confirmed Carvedilol 12.5 mg PO DAILY 11/14/16 05/24/17 Spironolactone [Aldactone] 25 mg PO DAILY 11/14/16 05/24/17 lisinopriL [Lisinopril] 40 mg PO DAILY 11/14/16 05/24/17 Albuterol 2.5 mg INH BID 11/17/16 05/24/17 Albuterol Sulfate 2 mg PO TID 11/17/16 05/24/17 Aspirin [Aspirin EC] 81 mg PO DAILY 11/17/16 05/24/17 Atorvastatin Calcium [Lipitor] 40 mg PO QPM 11/17/16 05/24/17 Furosemide [Lasix] 40 mg PO DAILY 11/17/16 05/24/17 Gabapentin [Neurontin] 300 mg PO BID 11/17/16 05/24/17 Glipizide [Glipizide ER] 10 mg PO BID 11/17/16 05/24/17 Ipratropium/Albuterol [Combivent 1 puffs INH QID 11/17/16 05/24/17 Respimat] Metformin HCl [Glucophage] 1,000 mg PO BID 11/17/16 05/24/17 Zinc 50 mg PO DAILY 11/17/16 05/24/17 Apixaban [Eliquis] 1 tab PO BID 05/24/17 05/24/17 Benzonatate [Tessalon] 100 mg PO TID PRN #25 capsule 05/24/17 Doxycycline Hyclate 100 mg PO BID #14 tablet 05/24/17 Ipratropium [Atrovent] 0.2 mg INH TID #30 neb 05/24/17 methylPREDNISolone 1 tab PO TID 05/24/17 05/24/17 [Methylprednisolone] - Allergies Allergies/Adverse Reactions: Allergies Allergy/AdvReac Type Severity Reaction Status Date / Time Sulfa (Sulfonamide Allergy Unknown Verified 03/23/22 10:18 Antibiotics) - Social History Does the pt smoke?: No Smoking Status: Never smoker Does the pt drink ETOH?: Yes Does the pt have substance abuse?: No - Immunizations Immunizations are current?: Yes - POLST Patient has POLST: No PD ED PE NORMAL - Vitals Vital signs reviewed: Yes - General General: Alert and oriented X 3, No acute distress, Well developed/nourished - HEENT HEENT: Pharynx benign - Neck Neck: Supple, no meningeal sign, No JVD - Cardiac Cardiac: RRR, No murmur - Respiratory Respiratory: Clear bilaterally - Abdomen Abdomen: Soft, Non tender - Derm Derm: Normal color, Warm and dry - Extremities Extremities: No edema, No calf tenderness / cord - Neuro Neuro: Alert and oriented X 3, No motor deficit, Normal speech Eye Opening: Spontaneous Motor: Obeys Commands Verbal: Oriented GCS Score: 15 Results - Vitals Vitals: Vital Signs - 24 hr 03/23/22 03/23/22 10:15 10:40 Temperature 37.2 C Heart Rate 61 69 Respiratory 19 19 Rate Blood Pressure 154/102 H 118/53 L O2 Saturation 96 96 Oxygen O2 Source Room air - EKG (time done) 10:17 Rate: Rate (enter#) (59) Rhythm: NSR Ste[place]: Normal Intervals: Normal IA QRS: Normal Ischemia: ST elevation c/w ischemia (inferior STEMI with anterior reciprocal changes. ) - Labs Labs: Laboratory Tests 03/23/22 03/23/22 03/23/22 10:30 10:30 10:30 WBC 9.4 RBC 5.34 Hgb 15.4 Hct 46.3 MCV 86.7 MCH 28.8 MCHC 33.3 RDW 13.2 Plt Count 228 MPV 10.1 Neut # (Auto) 7.5 H Lymph # (Auto) 1.4 L [place] # (Auto) 0.5 Eos # (Auto) 0.0 Baso # (Auto) 0.0 Absolute Nucleated RBC 0.00 Nucleated RBC % 0.0 Sodium 138 Potassium 3.4 L Chloride 94 L Carbon Dioxide 30 Anion Gap 14.0 H BUN 19 Creatinine 0.8 Estimated GFR (MDRD) 93 Glucose 213 H Calcium 9.8 Total Bilirubin 0.7 AST 16 ALT 15 Alkaline Phosphatase 71 Troponin I High Sens 113.1 H* Total Protein 7.6 Albumin 4.2 Globulin 3.4 Albumin/Globulin Ratio 1.2 Lipase 29 SARS-CoV-2 (PCR) 03/23/22 10:30 WBC RBC Hgb Hct MCV MCH MCHC RDW Plt Count MPV Neut # (Auto) Lymph # (Auto) [place] # (Auto) Eos # (Auto) Baso # (Auto) Absolute Nucleated RBC Nucleated RBC % Sodium Potassium Chloride Carbon Dioxide Anion Gap BUN Creatinine Estimated GFR (MDRD) Glucose Calcium Total Bilirubin AST ALT Alkaline Phosphatase Troponin I High Sens Total Protein Albumin Globulin Albumin/Globulin Ratio Lipase SARS-CoV-2 (PCR) NOT DETECTED PD MEDICAL DECISION MAKING - ED course Complexity details: reviewed results (ECG showing clearly inferior STEMI. ), considered differential, d/w patient - Critical Care Time(min): 35 Time Includes: Direct patient care, Reassess patient, Document care, Coordinate care, Medical consult Data interpretation: Labs, CXR Procedures excluded from critical care time: EKG Departure - Departure Disposition: 02 Transfer Acute Care Hosp Clinical Impression: ST elevation myocardial infarction (STEMI) of inferior wall Chest pain Qualifiers: Chest pain type: precordial pain Qualified Code(s): R07.2 - Precordial pain Condition: Stable Record reviewed to determine appropriate education?: Yes Discharge Date/Time: 03/23/22 11:01
[2022-03-23 10:34] LABS: BASOPHILS % (AUTO) 0.3 %; EOSINOPHILS % (AUTO) 0.3 %; HCT - HEMATOCRIT 46.3 % (42.0-52.0); HGB - HEMOGLOBIN 15.4 g/dL (14.0-18.0); LYMPHOCYTES # (AUTO) 1.4 10^3/uL (1.5-3.5); LYMPHOCYTES % (AUTO) 14.6 %; MEAN CORPUSCULAR HEMOGLOBIN 28.8 pg (27.0-31.0); MEAN CORPUSCULAR HGB CONC 33.3 g/dL (32.0-36.0); MEAN CORPUSCULAR VOLUME 86.7 fL (80.0-94.0); MEAN PLATELET VOLUME 10.1 fL (7.4-11.4); MONOCYTES # (AUTO) 0.5 10^3/uL (0.0-1.0); MONOCYTES % (AUTO) 5.1 %; NEUTROPHILS # (AUTO) 7.5 10^3/uL (1.5-6.6); NEUTROPHILS % (AUTO) 79.5 %; PLT - PLATELET COUNT 228 10^3/uL (130-450); RED BLOOD COUNT 5.34 10^6/uL (4.70-6.10); RED CELL DISTRIBUTION WIDTH 13.2 % (12.0-15.0); WHITE BLOOD COUNT 9.4 x10^3/uL (4.8-10.8)
[2022-03-23] MEDS ORDERED: ATORVASTATIN 40 MG TABLET PO STA (10:39)
[2022-03-23] MEDS ORDERED: ASPIRIN CHEW 81 MG TABLET ONE (10:39)
[2022-03-23] MEDS ORDERED: CLOPIDOGREL 300 MG TABLET PO STA (10:39)
[2022-03-23] MEDS ORDERED: HEPARIN 5,000 UNIT/ML VIAL IVP STA (10:39)
[2022-03-23] MEDS ORDERED: METOPROLOL TARTRATE 50 MG TABLET ONE (10:40)
[2022-03-23] MEDS ORDERED: HEPARIN 5,000 UNIT/ML VIAL ONE (10:40)
[2022-03-23] MEDS ORDERED: CLOPIDOGREL 300 MG TABLET PO ONE (10:43)
[2022-03-23] MEDS ORDERED: ATORVASTATIN 40 MG TABLET ONE (10:43)
[2022-03-23 10:48] VITALS: BP 118/53
[2022-03-23 10:54] LABS: ALBUMIN 4.2 g/dL (3.2-5.5); ALBUMIN/GLOBULIN RATIO 1.2 (1.0-2.2); BILIRUBIN,TOTAL 0.7 mg/dL (0.2-1.0); CALCIUM 9.8 mg/dL (8.5-10.3); CREATININE 0.8 mg/dL (0.6-1.2); POTASSIUM 3.4 mmol/L (3.5-5.0); TOTAL PROTEIN 7.6 g/dL (6.7-8.2)
--- NOTE | 2022-03-23 11:06 | XRAY Report ---
PROCEDURE: Chest 1 View X-Ray INDICATIONS: Chest pain TECHNIQUE: One view of the chest was acquired. COMPARISON: 10/05/2020 and 05/24/2017 FINDINGS: Surgical changes and devices: None. Lungs and pleura: No pleural effusions or pneumothorax. Stable hyperaeration and flattening of the h emidiaphragms. Stable streaky bibasilar opacities likely representing atelectasis. No focal consolida tion. Mediastinum: Mediastinal contours appear stable. Heart size is normal. Bones and chest wall: No suspicious bony lesions. Overlying soft tissues appear unremarkable. IMPRESSION: Stable examination of the chest without acute cardiopulmonary abnormalities. No focal consolidation. Reviewed by: Arnoldo Prabhakar MD on 03/23/2022 11:04 AM PDT Approved by: Arnoldo Prabhakar MD on 03/23/2022 11:04 AM PDT Station ID: [id number]
== END 2022-03-23 11:01 | disposition short-term general hospital (02) ==
LOC: ED 10:05
DX: I21.3 ST elevation (STEMI) myocardial infarction of unspecified site (principal); I10 Essential (primary) hypertension; E11.9 Type 2 diabetes mellitus without complications; Z79.84 Long term (current) use of oral hypoglycemic drugs; Z20.822 Contact with and (suspected) exposure to COVID-19
CPT/HCPCS: 36415; 71045; 80053; 83690; 84484; 85025; 87635; 93005; 96374; 99285; 99291; A9270

== ENCOUNTER 2022-03-28 10:20 | Outpatient (CLI) | payer MEDICARE ==
[2022-03-28 12:03] LABS: BASOPHILS % (AUTO) 0.4 %; EOSINOPHILS # (AUTO) 0.2 10^3/uL (0.0-0.7); EOSINOPHILS % (AUTO) 2.1 %; HCT - HEMATOCRIT 41.9 % (42.0-52.0); HGB - HEMOGLOBIN 13.3 g/dL (14.0-18.0); LYMPHOCYTES # (AUTO) 1.5 10^3/uL (1.5-3.5); LYMPHOCYTES % (AUTO) 19.9 %; MEAN CORPUSCULAR HEMOGLOBIN 28.4 pg (27.0-31.0); MEAN CORPUSCULAR HGB CONC 31.7 g/dL (32.0-36.0); MEAN CORPUSCULAR VOLUME 89.5 fL (80.0-94.0); MONOCYTES # (AUTO) 0.7 10^3/uL (0.0-1.0); MONOCYTES % (AUTO) 9.3 %; PLT - PLATELET COUNT 213 10^3/uL (130-450); RED BLOOD COUNT 4.68 10^6/uL (4.70-6.10); RED CELL DISTRIBUTION WIDTH 13.2 % (12.0-15.0); WHITE BLOOD COUNT 7.3 x10^3/uL (4.8-10.8)
[2022-03-28 12:29] LABS: ALBUMIN 3.6 g/dL (3.2-5.5); ALKALINE PHOSPHATASE 67 IU/L (42-121); ALT ALANINE AMINOTRANSFERASE 14 IU/L (10-60); AST ASPARTATE AMINOTRANSFERASE 15 IU/L (10-42); BILIRUBIN,TOTAL 0.7 mg/dL (0.2-1.0); BUN - BLOOD UREA NITROGEN 24 mg/dL (6-20); CALCIUM 9.7 mg/dL (8.5-10.3); CARBON DIOXIDE - CO2 29 mmol/L (21-32); CHLORIDE 97 mmol/L (101-111); CHOL/HDL RATIO 4.6 (<5.0); CHOLESTEROL 137 mg/dL; CREATININE 0.7 mg/dL (0.6-1.2); GFR - MDRD 109 (>89); GLUCOSE 221 mg/dL (70-100); HDL CHOLESTEROL 30 mg/dL; LDL CHOLESTEROL,CALCULATED 83 mg/dL; LDL/HDL RATIO 2.8 (<3.6); POTASSIUM 3.8 mmol/L (3.5-5.0); SODIUM 134 mmol/L (135-145); TOTAL PROTEIN 7.1 g/dL (6.7-8.2); TRIGLYCERIDES 118 mg/dL; VLDL CHOLESTEROL 24 mg/dL
[2022-03-28 12:42] LABS: ESTIMATED AVERAGE GLUCOSE 212 mg/dL (70-100)
== END 2022-03-28 10:21 | disposition home or self-care (01) ==
LOC: LAB.N 10:20
PROVIDERS: ATTEND Nurse Practitioner Family
DX: E11.59 Type 2 diabetes mellitus with other circulatory complications (principal)
CPT/HCPCS: 36415; 80053; 80061; 83036; 83721; 85025

== ENCOUNTER 2022-10-05 15:39 | Emergency (ER) | payer MEDICARE, OTHER ==
[2022-10-05] MEDS ORDERED: LIDOCAINE 1%-EPI 1:100000 20 ML MDV SUBQ STA (15:45)
--- NOTE | 2022-10-05 15:58 | ED Physician Documentation ---
PD HPI UPPER EXT INJURY - Stated complaint Stated Complaint: LAC ON WRIST - Chief complaint Chief Complaint: Laceration - History obtained from History obtained from: Patient (He had a skin cancer removed from left forearm earlier today at his [employer] [facility]. He is on Eliquis for A. fib. When he got home he started bleeding through the dressing. No pain.) PD PAST MEDICAL HISTORY - Past Medical History Cardiovascular: Hypertension, Coronary artery disease, Atrial fibrillation (sees Dr. Sotomayor at [facility] ) Respiratory: COPD Endocrine/Autoimmune: Type 2 diabetes GI: GERD : Nocturia, Frequency - Past Surgical History Past Surgical History: Yes - Present Medications Home Medications: Ambulatory Orders Medication Instructions Recorded Confirmed Carvedilol 12.5 mg PO DAILY 11/14/16 05/24/17 Spironolactone [Aldactone] 25 mg PO DAILY 11/14/16 05/24/17 lisinopriL [Lisinopril] 40 mg PO DAILY 11/14/16 05/24/17 Albuterol 2.5 mg INH BID 11/17/16 05/24/17 Albuterol Sulfate 2 mg PO TID 11/17/16 05/24/17 Aspirin [Aspirin EC] 81 mg PO DAILY 11/17/16 05/24/17 Atorvastatin Calcium [Lipitor] 40 mg PO QPM 11/17/16 05/24/17 Furosemide [Lasix] 40 mg PO DAILY 11/17/16 05/24/17 Gabapentin [Neurontin] 300 mg PO BID 11/17/16 05/24/17 Glipizide [Glipizide ER] 10 mg PO BID 11/17/16 05/24/17 Ipratropium/Albuterol [Combivent 1 puffs INH QID 11/17/16 05/24/17 Respimat] Metformin HCl [Glucophage] 1,000 mg PO BID 11/17/16 05/24/17 Zinc 50 mg PO DAILY 11/17/16 05/24/17 Apixaban [Eliquis] 1 tab PO BID 05/24/17 05/24/17 Benzonatate [Tessalon] 100 mg PO TID PRN #25 capsule 05/24/17 Doxycycline Hyclate 100 mg PO BID #14 tablet 05/24/17 Ipratropium [Atrovent] 0.2 mg INH TID #30 neb 05/24/17 methylPREDNISolone 1 tab PO TID 05/24/17 05/24/17 [Methylprednisolone] - Allergies Allergies/Adverse Reactions: Allergies Allergy/AdvReac Type Severity Reaction Status Date / Time Sulfa (Sulfonamide Allergy Unknown Verified 03/23/22 10:18 Antibiotics) - Social History Does the pt smoke?: No Smoking Status: Never smoker Does the pt drink ETOH?: Yes Does the pt have substance abuse?: No - Immunizations Immunizations are current?: Yes - POLST Patient has POLST: No PD ED PE NORMAL - Vitals Vital signs reviewed: Yes - General General: Alert and oriented X 3, No acute distress - Derm Derm: Normal color, Warm and dry - Extremities Extremities: Other (There is a sutured wound on the left posterior forearm with active venous oozing) - Neuro Neuro: Alert and oriented X 3, Normal speech Results - Vitals Vitals: Vital Signs - 24 hr 10/05/22 10/05/22 15:51 17:01 Temperature 37.1 C Heart Rate 69 69 Respiratory 18 18 Rate Blood Pressure 147/79 H 140/65 H O2 Saturation 96 97 Oxygen O2 Source Room air Procedures - Laceration (location) Left forearm Length in cm: 2 Wound type: Into subcut fat Anesthesia: Lidocaine 1% with epi Wound preparation: Chlorhexadine Skin layer closure: Nylon, Running (Locked), Size #-0 - enter number (4-0) Other: Patient tolerated well, No complications, Neurovascular intact PD Medical Decision Making - ED course ED course: Initially was oversewn with a running suture, this did not result in hemostasis of subsequently a [id number] suture with 3-0 nylon was placed hemostasis. Departure - Departure Disposition: 01 Home, Self Care Clinical Impression: Postoperative bleeding from incision Condition: Good Record reviewed to determine appropriate education?: Yes Instructions: ED Laceration All Comments: Not unreasonable to stop your blood thinner for a couple of days. Come back for any signs of infection which would include: Redness, swelling, drainage, increased pain, or fevers. You can wash it soap and water. Keep it covered and moist with bacitracin ointment which is available over the counter; avoid neosporin. Follow-up with your physician in 14 days for suture removal. Discharge Date/Time: 10/05/22 17:01
[2022-10-05 17:01] VITALS: BP 140/65
== END 2022-10-05 17:01 | disposition home or self-care (01) ==
LOC: ED 15:39
DX: L76.22 Postprocedural hemorrhage of skin and subcutaneous tissue following other procedure (principal); I48.91 Unspecified atrial fibrillation; Z79.01 Long term (current) use of anticoagulants
CPT/HCPCS: 12001; 99283

== ENCOUNTER 2022-11-22 06:30 | Inpatient (IN) | payer MEDICARE, OTHER ==
[2022-11-22] MEDS ORDERED: SODIUM CHLORIDE 0.9% 250 ML IV STA (06:40)
--- OUTSIDE RECORDS SUMMARY | 2022-11-22 06:47 | EXTERNAL MEDICAL SUMMARY RPT | Continuity of Care Document ---
:1940 Author Organization [facility] Address [address] [place] [address] Phone Allergies No information. Encounters No information. Functional Status No information. Immunizations No information. Medications No information. Problems No information. Procedures No information. Results/Labs test date author facility value unit interpret ation Result panel 1 (unknown) (no date) (unknown) (unknown) (no value) (units (un known) unknown) (unknown) (no date) (unknown) (unknown) No organisms (units ( unknown) seen unknown) (unknown) (no date) (unknown) (unknown) None seen (units (unk nown) unknown) (unknown) (no date) (unknown) (unknown) Occasional WBC (units (unknown) seen unknown) Result panel 2 (unknown) (no date) (unknown) (unknown) (no value) (units (un known) unknown) (unknown) (no date) (unknown) (unknown) No organisms (units ( unknown) seen unknown) (unknown) (no date) (unknown) (unknown) None seen (units (unk nown) unknown) (unknown) (no date) (unknown) (unknown) Occasional WBC (units (unknown) seen unknown) (unknown) (no date) (unknown) (unknown) Test not (units (unkn own) performed unknown) (unknown) (no date) (unknown) (unknown) Very Early (units (un known) Growth: Culture unknown) too young for work-up reincubated Result panel 3 (unknown) (no date) (unknown) (unknown) (no value) (units (un known) unknown) (unknown) (no date) (unknown) (unknown) Heavy growth - (units (unknown) Mixed skin unknown) mckayla (unknown) (no date) (unknown) (unknown) No organisms (units ( unknown) seen unknown) (unknown) (no date) (unknown) (unknown) None seen (units (unk nown) unknown) (unknown) (no date) (unknown) (unknown) Occasional WBC (units (unknown) seen unknown) (unknown) (no date) (unknown) (unknown) Test not (units (unkn own) performed unknown) Result panel 4 (unknown) (no date) (unknown) (unknown) (no value) (units (un known) unknown) (unknown) (no date) (unknown) (unknown) Heavy growth - (units (unknown) Mixed skin unknown) mckayla (unknown) (no date) (unknown) (unknown) No organisms (units ( unknown) seen unknown) (unknown) (no date) (unknown) (unknown) None seen (units (unk nown) unknown) (unknown) (no date) (unknown) (unknown) Occasional WBC (units (unknown) seen unknown) (unknown) (no date) (unknown) (unknown) Test not (units (unkn own) performed unknown) Result panel 5 (unknown) (no date) (unknown) (unknown) (no value) (units (un known) unknown) (unknown) (no date) (unknown) (unknown) No cells or (units (u nknown) organisms seen unknown) (unknown) (no date) (unknown) (unknown) No cells or (units (u nknown) organisms seen unknown) Result panel 6 (unknown) (no date) (unknown) (unknown) (no value) (units (un known) unknown) (unknown) (no date) (unknown) (unknown) Moderate (units (unkn own) growth - Mixed unknown) skin mckayla (unknown) (no date) (unknown) (unknown) No cells or (units (u nknown) organisms seen unknown) (unknown) (no date) (unknown) (unknown) No cells or (units (u nknown) organisms seen unknown) (unknown) (no date) (unknown) (unknown) Test not (units (unkn own) performed unknown) Result panel 7 (unknown) (no date) (unknown) (unknown) (no value) (units (un known) unknown) (unknown) (no date) (unknown) (unknown) Moderate (units (unkn own) growth - Mixed unknown) skin mckayla (unknown) (no date) (unknown) (unknown) No cells or (units (u nknown) organisms seen unknown) (unknown) (no date) (unknown) (unknown) No cells or (units (u nknown) organisms seen unknown) (unknown) (no date) (unknown) (unknown) Test not (units (unkn own) performed unknown) Result panel 8 (unknown) (no date) (unknown) (unknown) (no value) (units (un known) unknown) (unknown) (no date) (unknown) (unknown) Moderate (units (unkn own) growth - Mixed unknown) skin mckayla (unknown) (no date) (unknown) (unknown) No cells or (units (u nknown) organisms seen unknown) (unknown) (no date) (unknown) (unknown) No cells or (units (u nknown) organisms seen unknown) (unknown) (no date) (unknown) (unknown) Test not (units (unkn own) performed unknown) Social History No information. Vital Signs No information.
[2022-11-22 06:55] LABS: KETONES, SERUM (ACETEST) SMALL (NEGATIVE)
[2022-11-22 07:11] LABS: ALBUMIN 3.2 g/dL (3.2-5.5); ALBUMIN/GLOBULIN RATIO 0.8 (1.0-2.2); ALKALINE PHOSPHATASE 73 IU/L (42-121); ALT ALANINE AMINOTRANSFERASE 166 IU/L (10-60); AST ASPARTATE AMINOTRANSFERASE 393 IU/L (10-42); BILIRUBIN,TOTAL 1.5 mg/dL (0.2-1.0); BUN - BLOOD UREA NITROGEN 75 mg/dL (6-20); CALCIUM 8.5 mg/dL (8.5-10.3); CARBON DIOXIDE - CO2 17 mmol/L (21-32); CHLORIDE 89 mmol/L (101-111); CREATININE 5.9 mg/dL (0.6-1.2); GFR - MDRD 9 (>89); GLUCOSE 90 mg/dL (70-100); LIPASE 158 U/L (22-51); POTASSIUM 2.6 mmol/L (3.5-5.0); SODIUM 130 mmol/L (135-145); TOTAL PROTEIN 7.2 g/dL (6.7-8.2)
[2022-11-22] MEDS ORDERED: SODIUM CHLORIDE 0.9% 1,000 ML IV STA (07:13)
[2022-11-22 07:16] LABS: BASOPHILS # (AUTO) 0.1 10^3/uL (0.0-0.1); BASOPHILS % (AUTO) 0.4 %; HCT - HEMATOCRIT 39.8 % (42.0-52.0); HGB - HEMOGLOBIN 13.2 g/dL (14.0-18.0); LYMPHOCYTES % (AUTO) 7.9 %; MEAN CORPUSCULAR HEMOGLOBIN 26.8 pg (27.0-31.0); MEAN CORPUSCULAR HGB CONC 33.2 g/dL (32.0-36.0); MEAN CORPUSCULAR VOLUME 80.9 fL (80.0-94.0); MEAN PLATELET VOLUME 11.1 fL (7.4-11.4); MONOCYTES # (AUTO) 0.9 10^3/uL (0.0-1.0); MONOCYTES % (AUTO) 6.9 %; NEUTROPHILS # (AUTO) 11.1 10^3/uL (1.5-6.6); NEUTROPHILS % (AUTO) 84.3 %; PLT - PLATELET COUNT 225 10^3/uL (130-450); RED BLOOD COUNT 4.92 10^6/uL (4.70-6.10); RED CELL DISTRIBUTION WIDTH 13.7 % (12.0-15.0); WHITE BLOOD COUNT 13.1 x10^3/uL (4.8-10.8)
--- NOTE | 2022-11-22 07:30 | ED Physician Documentation ---
PD HPI NVD - Stated complaint Stated Complaint: GLF - Chief complaint Chief Complaint: General - History obtained from History obtained from: Patient, Family (daughter in particular gives expanded additional information about patient illness.) - History of Present Illness Timing - onset: How many weeks ago (09/25) Timing - duration: Weeks (09/25) Timing - details: Abrupt onset, Still present Associated symptoms: Fever, Loss of appetite. No: Abdominal pain Contributing factors: Other (The patient stated he started with upper respiratory symptoms including congestion chills fever and cough. These have decreased though the cough persists. He started with nausea vomiting and some diarrhea subsequently and has been ill that way for a week. Generally weak and feeling lightheaded.). No: Sick contact, Recent antibiotics Improved by: No: Eating, Vomiting Worsened by: Eating, Other (He feels lightheaded and weak getting up and trying to walk around with his walker.) Similar symptoms before: Has not had sx before Recently seen: Not recently seen Review of Systems Constitutional: reports: Chills, Myalgias, Fatigue Nose: reports: Congestion. denies: Rhinorrhea / runny nose Throat: denies: Sore throat Cardiac: denies: Chest pain / pressure Respiratory: reports: Dyspnea, Cough GI: reports: Nausea, Vomiting, Diarrhea. denies: Abdominal Pain, Hematemesis, Bloody / black stool : reports: Hesitancy (with less output the past several days.). denies: Dysuria Skin: denies: Rash, Lesions Musculoskeletal: denies: Extremity swelling Neurologic: reports: Generalized weakness, Near syncope (Very lightheaded and slumped to the floor with feeling of weakness today. Unable to get up. Describes general weakness without lateralization.). denies: Focal weakness, Syncope Endocrine: denies: Weight loss Immunocompromised: denies: Immunocompromised PD PAST MEDICAL HISTORY - Past Medical History Cardiovascular: Hypertension, Coronary artery disease, Atrial fibrillation Respiratory: COPD Endocrine/Autoimmune: Type 2 diabetes GI: GERD : Nocturia, Frequency - Past Surgical History Past Surgical History: Yes - Present Medications Home Medications: Ambulatory Orders Medication Instructions Recorded Confirmed Carvedilol 12.5 mg PO DAILY 11/14/16 11/22/22 Spironolactone [Aldactone] 25 mg PO DAILY 11/14/16 11/22/22 lisinopriL [Lisinopril] 40 mg PO DAILY 11/14/16 11/22/22 Albuterol 2.5 mg INH BID 11/17/16 11/22/22 Atorvastatin Calcium [Lipitor] 40 mg PO QPM 11/17/16 11/22/22 Furosemide [Lasix] 40 mg PO DAILY 11/17/16 05/24/17 Glipizide [Glipizide ER] 10 mg PO DAILY 11/17/16 11/22/22 Ipratropium/Albuterol [Combivent 1 puffs INH QID 11/17/16 11/22/22 Respimat] Metformin HCl [Glucophage] 1,000 mg PO BID 11/17/16 11/22/22 Zinc 50 mg PO HS 11/17/16 11/22/22 Apixaban [Eliquis] 1 tab PO BID 05/24/17 11/22/22 - Allergies Allergies/Adverse Reactions: Allergies Allergy/AdvReac Type Severity Reaction Status Date / Time Sulfa (Sulfonamide Allergy Unknown Verified 11/22/22 06:44 Antibiotics) - Social History Does the pt smoke?: No Smoking Status: Former smoker Does the pt drink ETOH?: Yes Does the pt have substance abuse?: No - Immunizations Immunizations are current?: Yes - POLST Patient has POLST: No PD ED PE NORMAL - Vitals Vital signs reviewed: Yes - General General: Alert and oriented X 3, No acute distress, Well developed/nourished - HEENT HEENT: Pharynx benign. No: Moist mucous membranes - Neck Neck: Supple, no meningeal sign, No adenopathy - Cardiac Cardiac: RRR, No murmur - Respiratory Respiratory: No: Clear bilaterally (mild exp wheezing particularly right.) - Abdomen Abdomen: Soft, Non tender - Derm Derm: Normal color, Warm and dry - Extremities Extremities: No edema, No calf tenderness / cord, Other (left forearm with scarred lesion with some scabbing. ) - Neuro Neuro: Alert and oriented X 3, No motor deficit, Normal speech Results - Vitals Vitals: Vital Signs - 24 hr 11/22/22 11/22/22 06:39 07:57 Temperature 36.9 C Heart Rate 58 L 88 Respiratory 15 16 Rate Blood Pressure 129/56 L O2 Saturation 94 Oxygen O2 Source Room air - EKG (time done) 08:00 Rate: Rate (enter#) (60) Rhythm: NSR Intervals: LBBB QRS: Normal Ischemia: Normal ST segments. No: ST elevation c/w ischemia, ST depression - Labs Labs: Laboratory Tests 11/22/22 11/22/22 11/22/22 06:43 06:43 07:34 WBC 13.1 H RBC 4.92 Hgb 13.2 L Hct 39.8 L MCV 80.9 MCH 26.8 L MCHC 33.2 RDW 13.7 Plt Count 225 MPV 11.1 Neut # (Auto) 11.1 H Lymph # (Auto) 1.0 L [place] # (Auto) 0.9 Eos # (Auto) 0.0 Baso # (Auto) 0.1 Absolute Nucleated RBC 0.00 Nucleated RBC % 0.0 VBG pH VBG pCO2 VBG pO2 VBG HCO3 VBG Total CO2 VBG O2 Saturation VBG Base Excess Sodium 130 L Potassium 2.6 L Chloride 89 L Carbon Dioxide 17 L Anion Gap 24.0 H BUN 75 H Creatinine 5.9 H Estimated GFR (MDRD) 9 L Glucose 90 Calcium 8.5 Magnesium Total Bilirubin 1.5 H AST 393 H ALT 166 H Alkaline Phosphatase 73 Total Protein 7.2 Albumin 3.2 Globulin 4.0 Albumin/Globulin Ratio 0.8 L Lipase 158 H Nasal Adenovirus (PCR) NOT DETECTED Nasal B. parapertussis DNA (PCR) NOT DETECTED Nasal Coronavir 229E PCR NOT DETECTED Nasal Coronavir HKU1 PCR NOT DETECTED Nasal Coronavir NL63 PCR NOT DETECTED Nasal Coronavir OC43 PCR NOT DETECTED Nasal Enterovir/Rhinovir PCR NOT DETECTED Nasal Influenza B PCR NOT DETECTED Nasal Influenza A PCR NOT DETECTED Nasal Parainfluen 1 PCR NOT DETECTED Nasal Parainfluen 2 PCR NOT DETECTED Nasal Parainfluen 3 PCR NOT DETECTED Nasal Parainfluen 4 PCR NOT DETECTED Nasal RSV (PCR) NOT DETECTED Nasal B.pertussis DNA PCR NOT DETECTED Nasal C.pneumoniae (PCR) NOT DETECTED Dewey Human Metapneumo PCR NOT DETECTED Nasal M.pneumoniae (PCR) NOT DETECTED Nasal SARS-CoV-2 (PCR) DETECTED A Serum Ketones SMALL H 11/22/22 11/22/22 11/22/22 07:42 07:42 09:40 WBC RBC Hgb Hct MCV MCH MCHC RDW Plt Count MPV Neut # (Auto) Lymph # (Auto) [place] # (Auto) Eos # (Auto) Baso # (Auto) Absolute Nucleated RBC Nucleated RBC % VBG pH 7.217 L VBG pCO2 38.7 L VBG pO2 24.9 L VBG HCO3 15.4 L VBG Total CO2 16.6 L VBG O2 Saturation 43.1 L VBG Base Excess -11.6 L Sodium 129 L Potassium 2.6 L Chloride 91 L Carbon Dioxide 14 L Anion Gap 24.0 H BUN 80 H* Creatinine 5.9 H Estimated GFR (MDRD) 9 L Glucose 78 Calcium 7.7 L Magnesium 1.8 Total Bilirubin AST ALT Alkaline Phosphatase Total Protein Albumin Globulin Albumin/Globulin Ratio Lipase Nasal Adenovirus (PCR) Nasal B. parapertussis DNA (PCR) Nasal Coronavir 229E PCR Nasal Coronavir HKU1 PCR Nasal Coronavir NL63 PCR Nasal Coronavir OC43 PCR Nasal Enterovir/Rhinovir PCR Nasal Influenza B PCR Nasal Influenza A PCR Nasal Parainfluen 1 PCR Nasal Parainfluen 2 PCR Nasal Parainfluen 3 PCR Nasal Parainfluen 4 PCR Nasal RSV (PCR) Nasal B.pertussis DNA PCR Nasal C.pneumoniae (PCR) Dewey Human Metapneumo PCR Nasal M.pneumoniae (PCR) Nasal SARS-CoV-2 (PCR) Serum Ketones - Rads (name of study) chest xray Radiology: Prelim report reviewed, EMP read indepedently (no infiltrates), See rad report PD Medical Decision Making - ED course Complexity details: reviewed results, considered differential, d/w patient, d/w family (daughter gives expanded information of patient symptoms over the past 2 weeks. ) Reviewed Lab Results: The patient has had upper respiratory symptoms for starting a couple of weeks ago and then progressed into nausea and vomiting with some diarrhea the past week. Use General weakness. He states his breathing has improved except for persistent cough. His chest x-ray does not show any signs of pneumonia. However his respiratory panel done to evaluate for potential infections that way is positive for COVID. However it is unclear whether he still has active infection of that. His blood tests are significantly abnormal with a quite elevated creatinine of 5.9. His most recent creatinine level in the past several months was actually normal at 0.7. The patient's potassium is actually low at 2.6. His sodium is also low at 3130. He does not appear clinically and historically to sound well dehydrated I assume some level of his elevated creatinine is prerenal dehydration. Bladder scanner did show him to have urinary retention of approximately 550 mL so there may be some mixed obstructive uropathy at the prostate level as well. A Mccormick catheter was placed to help with this. He was given IV fluids. A recheck of his electrolytes just a couple of hours later after 1-1/2 L of fluid did not show really much interval change. Given his new acute kidney injury and electrolyte disturbances along with apparent viral illness and ongoing difficulty with fluid retention because of nausea and vomiting, I do feel he needs further treatment within the hospital setting and the timeframe for his improvement will be days. I did consult with Dr. Avalos who is the hospitalist on who agrees to see the patient and admit him to the hospital. Departure - Departure Disposition: 66 [facility] DC/Xfer Clinical Impression: COVID-19, Dehydration, Hypokalemia, IRVIN (acute kidney injury), Acute urinary retention, Electrolyte abnormality Nausea and vomiting Qualifiers: Vomiting type: unspecified Qualified Code(s): R11.2 - Nausea with vomiting, unspecified Condition: Stable Record reviewed to determine appropriate education?: Yes Discharge Date/Time: 11/22/22 11:31
[2022-11-22] MEDS ORDERED: POTASSIUM CHLOR 10 MEQ/100 ML 10 MEQ/100 ML BAG IV ONE (07:35)
[2022-11-22] MEDS ORDERED: LACTATED RINGERS 1,000 ML IV STA (07:36)
[2022-11-22] MEDS ORDERED: ALBUTEROL NEB 2.5 MG/3 ML INH STA (07:39)
[2022-11-22 07:51] LABS: VBG BASE EXCESS -11.6 mmol/L (-2 - +2); VBG HCO3 15.4 mmol/L (23-28); VBG OXYGEN SATURATION 43.1 % (60-80); VBG PCO2 38.7 mmHg (41-51); VBG PH 7.217 (7.31-7.41); VBG PO2 24.9 mmHg (25-47); VBG TOTAL CO2 16.6 mmol/L (24-29)
--- NOTE | 2022-11-22 08:12 | XRAY Report ---
PROCEDURE: Chest 1 View X-Ray INDICATIONS: chest pain TECHNIQUE: One view of the chest was acquired. COMPARISON: 03/23/2022. FINDINGS: Surgical changes and devices: None. Lungs and pleura: No pleural effusions or pneumothorax. Lungs are clear. Mediastinum: Mediastinal contours appear normal. Heart size is normal. Bones and chest wall: No suspicious bony lesions. Overlying soft tissues appear unremarkable. IMPRESSION: No acute cardiopulmonary pathology. Reviewed by: Sam Mattson MD on 11/22/2022 8:11 AM [facility] Approved by: Sam Mattson MD on 11/22/2022 8:11 AM [facility] Station ID: [id number]
[2022-11-22 09:00] LABS: B. PARAPERTUSSIS- RESP PCR PAN NOT DETECTED; B. PERTUSSIS- RESP PCR PANEL NOT DETECTED; C. PNEUMONIAE- RESP PCR PANEL NOT DETECTED; CORONAVIRUS 229E-RESP PCR NOT DETECTED; CORONAVIRUS HKU1-RESP PCR NOT DETECTED; CORONAVIRUS NL63-RESP PCR NOT DETECTED; CORONAVIRUS OC43-RESP PCR NOT DETECTED; HUMAN METAPNEUMOVIRUS NOT DETECTED; INFLUENZA A- RESP PCR PANEL NOT DETECTED; INFLUENZA B - RESP PCR PANEL NOT DETECTED; M. PNEUMONIAE- RESP PCR PANEL NOT DETECTED; PARAINFLUENZA VIRUS 1 NOT DETECTED; PARAINFLUENZA VIRUS 2 NOT DETECTED; PARAINFLUENZA VIRUS 3 NOT DETECTED; PARAINFLUENZA VIRUS 4 NOT DETECTED; RHINOVIRUS/ENTEROVIRUS NOT DETECTED; RSV- RESP PCR PANEL NOT DETECTED
[2022-11-22 09:02] LABS: SARS-CoV-2 -RESP PCR PANEL DETECTED
[2022-11-22] MEDS ORDERED: ELECTROLYTE-A SOLUTION 1,000 ML IV SCH (10:00)
[2022-11-22 10:06] LABS: CALCIUM 7.7 mg/dL (8.5-10.3); CREATININE 5.9 mg/dL (0.6-1.2); POTASSIUM 2.6 mmol/L (3.5-5.0)
[2022-11-22] MEDS ORDERED: DEXTROSE 10% 250 ML IV STA (10:29)
[2022-11-22] MEDS ORDERED: ONDANSETRON ODT 4 MG TABLET TL PRN (10:54)
[2022-11-22] MEDS ORDERED: oxyCODONE 5 MG TABLET PO PRN ×2 (10:54→11:00)
[2022-11-22] MEDS ORDERED: ACETAMINOPHEN 325 MG TABLET PO PRN ×2 (10:54→11:00)
[2022-11-22] MEDS ORDERED: ONDANSETRON 4 MG/2 ML VIAL IVP PRN (10:54)
[2022-11-22] MEDS ORDERED: SODIUM CHLORIDE FLUSH 0.9% 10 ML SYRINGE IVP PRN (11:00)
[2022-11-22] MEDS ORDERED: TAMSULOSIN 0.4 MG CAPSULE PO STA (11:07)
[2022-11-22 11:21] LABS: BILIRUBIN,URINE NEGATIVE (NEGATIVE); GLUCOSE, URINE (UA) NEGATIVE (NEGATIVE); KETONES,URINE (UA) NEGATIVE (NEGATIVE); LEUKOCYTE ESTERASE, URINE NEGATIVE (NEGATIVE); NITRITE,URINE NEGATIVE (NEGATIVE); OCCULT BLOOD,URINE LARGE (NEGATIVE); PROTEIN,URINE 30 mg/dL (NEGATIVE); UROBILINOGEN,URINE 0.2 (NORMAL) E.U./dL (NORMAL)
[2022-11-22 11:22] LABS: CLARITY,URINE CLEAR (CLEAR)
[2022-11-22 11:35] LABS: BACTERIA,URINE Few /HPF (None Seen); RBC,URINE 0-5 /HPF (0-5); SQUAMOUS EPITHELIAL CELL,UR NONE SEEN (<= Few); WBC,URINE 0-3 /HPF (0-3)
[2022-11-22] MEDS: POTASSIUM CHLOR 10 MEQ/100 ML 10 MEQ/100 ML BAG IV SCH ×2 (11:39→14:39)
[2022-11-22] MEDS: SODIUM CHLORIDE 0.9% 1,000 ML IV SCH (11:39)
[2022-11-22] MEDS: GABAPENTIN 300 MG CAPSULE PO SCH ×2 (14:39→21:22)
--- NOTE | 2022-11-22 16:35 | PHARMACY PROGRESS NOTE ---
- Best Possible Medication History Admit Date and Time: 11/22/22 1054 Processed by: Pharmacy Medication History completed: Yes Patient Interview: Completed Secondary Source(s): Pharmacy records (Pt doesn't know meds very well. Had to fax [facility]) As the person ultimately responsible for medication therapy, providers are able to order a medication from an existing home medication list in [facility] via the "Reconcile Routine" prior to Confirmation of that medication by office support associate. Such practice is discouraged except when the physician, in their clinical judgment, deems that a medical need exists for a medication without regard to previous use.
[2022-11-22] MEDS: SODIUM CHLORIDE FLUSH 0.9% 10 ML SYRINGE IVP SCH (16:50)
--- NOTE | 2022-11-22 16:53 | HISTORY & PHYSICAL EXAMINATION ---
Chief Complaint - Chief Complaint Chief Complaint: Urinary retention, nausea, and COVID-19 History of Present Illness - Admitted From Admitted From:: [facility] Emergency Department - History Obtained From Records Reviewed: ER Doctor History obtained from: Patient Exam Limitations: none - History of Present Illness HPI Comment/Other: Patient is a 81 year old male who presents with a long history of BPH and urinary retention and tested positive for COVID-19 in the emergency department. Patient is alert and oriented during visit and has a pleasant affect. Patient states that he feels relieved since ovalles has been put in place. Patient states that he has had problems with his prostate for years. Patient has not seen a urologist for his worsening BPH and is not convinced that he needs one. Blood was seen in the ovalles bag during visit, suggestive of acute kidney injury. Patients GFR is 9L, creatinine is 5.9, BUN is 80. Patient appears to have IRVIN. Metformin to be discontinued and patients kidney function to be monitored closely. Patient tested positive for COVID 19 at 0734 however, patient is not in respirat ory distress and not requiring oxygen therapy. Chest X-ray does not show infiltrates or effusions. Patients lungs sounded clear during auscultation. Airbourne precautions to be initiated during admission. Patients lactic acid is 4.4, this may be exacerbated by metformin that patient takes at home. Metformin to be discontinued during admission stay and monitored every 24 hours with CMP. Patients potassium level was 2.6 and his sodium levels were 129. Patient does not exhibit any clinical manifestations of hypokalemia or hyponatremia. Patient labs need to be monitored closely and IV fluids to be initiated throughout admission. History - Past Medical History Cardiovascular: reports: Hypertension, Coronary artery disease, Atrial fibrillation Respiratory: reports: COPD Neuro: reports: None Endocrine/Autoimmune: reports: Type 2 diabetes GI: reports: GERD : reports: Nocturia, Frequency Psych: reports: None Musculoskeletal: reports: Osteoarthritis Derm: reports: Other MRSA Hx?: No - Past Surgical History Cardiovascular: reports: Coronary stent Derm: reports: Skin cancer surgery - Family & Social History Family History: Mother: Diabetes, Type 2, Father: Cancer (Unknown cancer) Living arrangement: At home (Lives with . His children live on the property. ) Living Situation: With spouse/s.o. - Substance History Use: Uses substance without health or social issues: Alcohol (Socially. Hasn't drank since New Years) - POLST Patient has POLST: No Meds/Allgy - Home Medications Home Medications: Ambulatory Orders Medication Instructions Recorded Confirmed Carvedilol 12.5 mg PO DAILY 11/14/16 11/22/22 lisinopriL [Lisinopril] 40 mg PO DAILY 11/14/16 11/22/22 Albuterol 2.5 mg INH BID PRN 11/17/16 11/22/22 Metformin HCl [Glucophage] 1,000 mg PO BID 11/17/16 11/22/22 Zinc 50 mg PO HS 11/17/16 11/22/22 Apixaban [Eliquis] 1 tab PO BID 05/24/17 11/22/22 Amlodipine Besylate [Norvasc] 1 tab PO DAILY 11/22/22 11/22/22 Clopidogrel [Plavix] 1 tab PO DAILY 11/22/22 11/22/22 Empagliflozin [Jardiance] 1 tab PO DAILY 11/22/22 11/22/22 Insulin Detemir [Levemir] 10 unit SQ QPM 11/22/22 11/22/22 Mesalamine [Asacol Hd] 2 tab PO BID 11/22/22 11/22/22 Montelukast [Singulair] 1 tab PO QPM 11/22/22 11/22/22 Rosuvastatin Calcium [Crestor] 1 tab PO QPM 11/22/22 11/22/22 Tamsulosin [Flomax] 1 cap PO DAILY 11/22/22 11/22/22 glipiZIDE [Glucotrol] 1 tab PO BID 11/22/22 11/22/22 oxyBUTYnin chloride [Oxybutynin 1 tab PO DAILY 11/22/22 11/22/22 Chloride] - Allergies Allergies/Adverse Reactions: Allergies Allergy/AdvReac Type Severity Reaction Status Date / Time Sulfa (Sulfonamide Allergy Unknown Verified 11/22/22 06:44 Antibiotics) Review of Systems - Constitutional Constitutional: reports: Fatigue, Chills, Malaise, Weakness, Poor appetite. denies: Fever, Diaphoresis - Eyes Eyes: denies: Pain, Blurred vision - Ears, Nose & Throat Ears, Nose & Throat: denies: Ear pain, Nasal congestion, Sore throat - Cardiovascular Cariovascular: denies: Irregular heart rate, Palpitations, Chest pain, Edema, Lightheadedness, Syncope - Respiratory Respiratory: reports: Cough, SOB at rest, SOB with exertion - Gastrointestinal Gastrointestinal: denies: Abdominal pain, Abdominal distention, Constipation, Diarrhea, Nausea, Vomiting - Genitourinary Genitourinary: reports: Hematuria (Noted in ovalles bag.), Other (Urinary retention) - Musculoskeletal Musculoskeletal: denies: Back pain, Joint swelling - Integumentary Integumentary: reports: Other (Skin cancer removal on left arm.). denies: Rash, Pruritis - Neurological Neurological: reports: General weakness. denies: Headache, Dizziness - Psychiatric Psychiatric: denies: Depression - Endocrine Endocrine: denies: Polyuria, Polydypsia Prior Level of Functionality: Patient is fully independent and lives with his . Exam - Vital Signs Reviewed Vital Signs: Yes Vital Signs: Vital Signs x48h Temp Pulse Pulse Resp BP BP Pulse Ox 11/22/22 16:00 36.6 C 63 18 133/44 H 96 11/22/22 11:58 36.3 C L 75 18 156/56 H 96 11/22/22 11:18 65 23 145/63 H 98 - Physical Exam General Appearance: positive: No acute distress (Patient is relieved after gwendolyn cement of ovalles.), Alert Eyes Bilateral: positive: Normal inspection, PERRL ENT: positive: ENT inspection nml, Pharynx nml, No signs of dehydration Neck: positive: Nml inspection, No JVD, Trachea midline Respiratory: positive: Chest non-tender, No respiratory distress, Breath sounds nml Cardiovascular: positive: Regular rate & rhythm, No murmur, No gallop Abdomen: positive: Non-tender, No organomegaly, Nml bowel sounds, No distention Back: positive: Nml inspection Skin: positive: Color nml, No rash, Warm Extremities: positive: Non-tender, Full ROM, Nml appearance, Other (Skin cancer removal on left arm.) Neurologic/Psychiatric: positive: Oriented x3, CN's nml (2-12), Motor nml, Sensation nml, Mood/affect nml Conclusion/Plan - Problem List (1) Acute urinary retention Conclusion/Plan: Patient is relieved since the ovalles has been put in place. Patient no longer feels that his bladder is full. Urinary retention appears to be resolved. We will continue to monitor patients urinary habits. Plan Continue to leave ovalles catheter in place for the duration of admission. Monitor patients hydration status. Monitor patients urine output. Order labs to check GRF, creatinine, and BUN every 24 hours. Continue home dose of tamulosin. (2) COVID-19 Conclusion/Plan: Patient test postive for COVID-19, however, patient does not present in respiratory distress. Airbourne precautions should be utilized and proper PPI should be used around patient. Patient does not qualify for antivirals due to length of symptoms. Plan Place patient on airbourne precautions. Continue to monitor patients vitals every 8 hours. Ensure adequate hydration. (3) IRVIN (acute kidney injury) Conclusion/Plan: Patient urinary retention has been temperoraly resolved, however, GFR/Creatinine/BUN should be monitored closed due to abnormal lab values. Patient did have visible blood in ovalles bag that should be monitored closely. Plan Continue patient on ovalles catheter for duration of admission. Order BMP to monitor kidney functions. Ensure adequate hydration. (4) Dehydration Conclusion/Plan: Patient presented to the ER with dehydration. Since admission patient was started on IV fluids and patient appears adequately hydrated. Patient was drinking water during visit. Dehydration appears resolved, however, this should be monitored throughout admission. Plan Ensure adequate hydration via IV fluids and PO water. (5) Hypokalemia Conclusion/Plan: Patient has a potassium level of 2.6 at 0940 today. Patients telemetry showed first degree AV block at 1624. However, patient is not showing any signs of distress or reporting chest pains. Plan Continue patient on potassium chloride IV Continue telemetry every 24 hours. (6) Electrolyte abnormality Conclusion/Plan: Patient is alert and oriented. Patient does not show signs of confusion or heart abnormalities. Plan Continue patient on potassium chloride IV Continue patient on lactated ringers Continue patient on Dextrose (7) Nausea Conclusion/Plan: Patient's nausea has improved since Zofran administration, however, patient is still not able to keep food down. Patient is wanting to try eating again in the morning. Plan Continue Zofran prn Continue IV fluids Continue to monitor patients hydration and vital signs. (8) Lactic acidosis Conclusion/Plan: Patients lab shows increased lactic acid at 11:18. This may be due to or exacerbated by metformin. Plan Discontinue use of metformin Continue IV fluids Continue to order CMP every 24 hours. - Lab Results Fish Bones: 11/22/22 06:43 11/22/22 09:40
[2022-11-22] MEDS: carvediloL 12.5 MG TABLET PO SCH (21:22)
[2022-11-23] MEDS: SODIUM CHLORIDE FLUSH 0.9% 10 ML SYRINGE IVP SCH ×3 (00:18→15:48)
[2022-11-23] MEDS: SODIUM CHLORIDE 0.9% 1,000 ML IV SCH ×2 (00:18→11:25)
[2022-11-23 05:59] LABS: BASOPHILS % (AUTO) 0.2 %; HCT - HEMATOCRIT 31.7 % (42.0-52.0); HGB - HEMOGLOBIN 10.6 g/dL (14.0-18.0); LYMPHOCYTES # (AUTO) 0.8 10^3/uL (1.5-3.5); MEAN CORPUSCULAR HEMOGLOBIN 27.2 pg (27.0-31.0); MEAN CORPUSCULAR HGB CONC 33.4 g/dL (32.0-36.0); MEAN CORPUSCULAR VOLUME 81.5 fL (80.0-94.0); MEAN PLATELET VOLUME 11.1 fL (7.4-11.4); MONOCYTES # (AUTO) 1.1 10^3/uL (0.0-1.0); MONOCYTES % (AUTO) 10.7 %; NEUTROPHILS % (AUTO) 80.7 %; PLT - PLATELET COUNT 153 10^3/uL (130-450); RED BLOOD COUNT 3.89 10^6/uL (4.70-6.10); RED CELL DISTRIBUTION WIDTH 13.8 % (12.0-15.0)
[2022-11-23 06:13] LABS: CALCIUM 7.2 mg/dL (8.5-10.3); CREATININE 6.6 mg/dL (0.6-1.2)
[2022-11-23 06:14] LABS: POTASSIUM 2.5 mmol/L (3.5-5.0)
[2022-11-23] MEDS: GABAPENTIN 300 MG CAPSULE PO SCH ×4 (06:22→20:31)
[2022-11-23] MEDS ORDERED: SODIUM CHLORIDE 0.9% 1,000 ML IV SCH (07:34)
[2022-11-23 07:55] LABS: ABG HCO3 15.1 mmol/L (22.0-26.0); ABG PCO2 32 mmHg (34-45); ABG PH 7.29 (7.35-7.45); ABG PO2 62 mmHg (80-100); ABG TCO2 16.1 MMOL/L (21.0-29.0)
[2022-11-23 07:56] LABS: ABG BASE EXCESS -10.4 mmol/L (-2.0-3.0); ABG OXYGEN SATURATION 91 % (94-98); ALLEN TEST POSITIVE
[2022-11-23] MEDS ORDERED: POTASSIUM CHLOR 10 MEQ/100 ML 10 MEQ/100 ML BAG IV SCH (08:00)
[2022-11-23] MEDS: POTASSIUM CHLOR 10 MEQ/100 ML 10 MEQ/100 ML BAG IV SCH ×8 (08:44→17:56)
[2022-11-23] MEDS: TAMSULOSIN 0.4 MG CAPSULE PO SCH (08:50)
[2022-11-23] MEDS: carvediloL 12.5 MG TABLET PO SCH ×2 (08:50→21:32)
[2022-11-23] MEDS: IPRATROPIUM/ALBUTEROL 3 ML NEB INH PRN (14:41)
--- NOTE | 2022-11-23 19:07 | PROVIDER PROGRESS NOTE ---
Progress Note November 23, 2022 6:50 PM I have seen Mr. Quevedo twice today. This morning he was already sitting up in bed, was eating breakfast and was actually asking for more food. He said this is the first solid food he has had in days and it feels great. I then saw him again this afternoon with his and daughter. They also comment that he is doing very well. They had numerous questions and I was able to answer all of them to their satisfaction over the course of a 40-minute conversation. I explained to them that he does have renal failure that is not improving. I am having to supplement his potassium. He is not having any symptoms of coughing, congestion, shortness of breath. Exam: Temperature 36.9. Heart rate 62. Blood pressure 124/50. Respirations 20. 96% on room air. A 6 foot 2 inch white elderly male. Yesterday he was with eyes sunken in his head, dry oral mucosa, and very irritable. He hated the bed, he hated the room, it was too cold in the ER. Now on MedSurg he is cheerful, alert, joking. While he is still not sleeping well in this bed, he says he feels so much better than he did yesterday. Neck is supple with shotty adenopathy, no JVD or bruits Lungs are clear. He has diminished breath sounds at the bases but there is no cough or rhonchi. He has an incentive spirometer at the bedside and have encouraged him to use that at least 3-4 times a day. Regular rate and rhythm with a systolic ejection murmur Abdomen is soft, nontender, normal bowel sounds. Bowel movement today. He has a Mccormick. Brown dark urine. Last night he only put out 650 cc. Today he is put out 73 cc. So far he has had close to 6 L of fluid in. He does not have any edema present on his legs. He does have the skin discoloration of hyperpigmentation from chronic venous stasis. But no evidence of edema or skin breakdown at this time. Feet are cool, capillary refill is delayed at about 4 seconds, he says his feet are numb from neuropathy. Lab: Sodium on admission was 130 and has been at 129. Potassium was 2.6 on admission and in spite of numerous IV riders, his potassium was 2.5 this morning. I am giving him another 60 mEq rider. Carbon dioxide remains low indicating state of acidosis. Lactic acid was 4.4 yesterday and it is down to 2.3 this morning. Anion gap still remains high at 17 but he was 24 yesterday so it is getting better. BUN was 80 yesterday and is 80 today after the 6 L of hydration. Creatinine started at 5.9 and it is 6.6 and spite of 6 L of hydration and a Mccormick being placed. Reminder that total bili was 1.5, AST 393, and ALT 166 on admission. Lipase is 158. The elevation in liver enzymes that were seen on admission were new for him. He has not had that before. Assessment/plan 1. Acute kidney failure. This patient describes symptoms of prostatism and no urine output. In the ER we saw a bladder scan indicating he had over 500 cc and a Mccormick was placed. I had hoped that urinary retention with obstructive uropathy in the face of dehydration was the cause of his kidney failure. It still may be that but he has not responded to IV fluids with slow correction of his acidosis. I have explained to him that acute kidney injury sometimes takes days to respond. If he continues to get elevated creatinine, and no urine output, I will reach out to nephrology. I asked him if he ended up being a candidate for dialysis what he wanted. His daughter and were in the room when he responded that yes he would. In the meantime I will continue encouraging p.o. intake. I had initially decreased IV fluids this morning from 100 cc an hour to 60 cc an hour. By this evening I am stopping IV fluids completely since he has had almost no urine output and I want to avoid fluid overload. 2. Dehydration as manifested by dry oral mucosa yesterday. It has improved quite a bit. Oral mucosa is moist, he is having adequate p.o. intake. And has received 6 L of IV fluids. Again, I will stop IV fluids and encourage p.o. intake only to avoid fluid overload in the face of acute kidney failure. 3. Hypokalemia continues. He will get another 60-80 mill colons of potassium IV today. Since he is tolerating p.o., tomorrow I may switch over to p.o. intake only. We will check potassium tomorrow morning. 4. Lactic acidosis. I feel that he had a combination of severe dehydration, liver disease, and metformin use that cause this. It is slowly responding to IV hydration and I am not giving him metformin. I do not believe he had sepsis. 5. Nausea. Anorexia. Diarrhea Most likely due to to a radha effect of dehydration, subsequent chemical hepatitis, acute renal failure all taking ways appetite. All of that is resolved and he is eating well today. In fact we had to encourage him to slow down on the amount of food he was taking in. He just felt so glad to be able to eat again. 6. Elevated liver enzymes. May be due to lactic acidosis. No epigastric or right upper quadrant pain. As such I do not suspect acute cholecystitis. Plan to check abdominal ultrasound and acute hepatitis panel and repeat CMP in the morning.
[2022-11-23 19:42] LABS: ALBUMIN 2.2 g/dL (3.2-5.5); BILIRUBIN,DIRECT 0.1 mg/dL (0.1-0.5); BILIRUBIN,TOTAL 0.9 mg/dL (0.2-1.0); TOTAL PROTEIN 5.2 g/dL (6.7-8.2)
[2022-11-24] MEDS: SODIUM CHLORIDE FLUSH 0.9% 10 ML SYRINGE IVP SCH ×3 (01:00→17:49)
[2022-11-24] MEDS ORDERED: CALCIUM CARBONATE CHEW 500 MG TABLET PO PRN (01:40)
[2022-11-24] MEDS: GABAPENTIN 300 MG CAPSULE PO SCH (05:26)
[2022-11-24 05:27] LABS: BASOPHILS % (AUTO) 0.3 %; EOSINOPHILS % (AUTO) 0.1 %; HCT - HEMATOCRIT 32.8 % (42.0-52.0); HGB - HEMOGLOBIN 11.2 g/dL (14.0-18.0); LYMPHOCYTES # (AUTO) 0.6 10^3/uL (1.5-3.5); LYMPHOCYTES % (AUTO) 6.5 %; MEAN CORPUSCULAR HEMOGLOBIN 27.1 pg (27.0-31.0); MEAN CORPUSCULAR HGB CONC 34.1 g/dL (32.0-36.0); MEAN CORPUSCULAR VOLUME 79.4 fL (80.0-94.0); MEAN PLATELET VOLUME 10.7 fL (7.4-11.4); MONOCYTES # (AUTO) 0.9 10^3/uL (0.0-1.0); MONOCYTES % (AUTO) 8.8 %; NEUTROPHILS # (AUTO) 8.2 10^3/uL (1.5-6.6); NEUTROPHILS % (AUTO) 83.8 %; PLT - PLATELET COUNT 136 10^3/uL (130-450); RED BLOOD COUNT 4.13 10^6/uL (4.70-6.10); RED CELL DISTRIBUTION WIDTH 13.5 % (12.0-15.0); WHITE BLOOD COUNT 9.8 x10^3/uL (4.8-10.8)
[2022-11-24 05:44] LABS: ALBUMIN 2.3 g/dL (3.2-5.5); ALBUMIN/GLOBULIN RATIO 0.7 (1.0-2.2); BILIRUBIN,TOTAL 0.7 mg/dL (0.2-1.0); CALCIUM 7.3 mg/dL (8.5-10.3); CREATININE 6.9 mg/dL (0.6-1.2); POTASSIUM 3.3 mmol/L (3.5-5.0); TOTAL PROTEIN 5.4 g/dL (6.7-8.2)
[2022-11-24] MEDS: IPRATROPIUM/ALBUTEROL 3 ML NEB INH PRN (08:42)
[2022-11-24] MEDS: carvediloL 12.5 MG TABLET PO SCH ×2 (09:56→21:39)
[2022-11-24] MEDS: TAMSULOSIN 0.4 MG CAPSULE PO SCH (09:56)
--- NOTE | 2022-11-24 11:22 | Ultrasound Report ---
PROCEDURE: Abdomen Complete INDICATIONS: eleva of liver enzymes and lactic acidosis TECHNIQUE: Real-time scanning was performed of the abdominal and retroperitoneal organs, with image documentatio n. COMPARISON: None. FINDINGS: Liver: Liver is mildly prominent in size and heterogeneous in echotexture. No focal hepatic abnorma lity seen. Main portal vein is patent with prominence of the left portal vein. There is hepatopedal f low. Gallbladder: Gallbladder wall is mildly thickened at 4 mm. Oval, hyperechoic focus noted over the pos terior wall without vascularity or posterior shadowing. This measures approximately 0.5 cm in size. N o pericholecystic fluid. Biliary ducts: Intrahepatic bile ducts are non-dilated. Extrahepatic bile duct caliber measures 4 m m. Normal is 6-7 mm or less in diameter, or 10 mm or less post-cholecystectomy. Pancreas: Limited visualization of the pancreas secondary to bowel gas. Spleen: Spleen is normal in size and homogeneous in echotexture. Kidneys: Kidneys are normal in size and echotexture. Right kidney measures 12.3 cm long; left kidne y measures 13.2 cm long. There is mild left hydronephrosis with a simple appearing inferior left justyna l cyst measuring 2.9 x 2.8 x 2.7 cm.. No solid masses. Aorta: Visualized aorta is normal in caliber at less than 3 cm. The distal aorta is nontapering in appearance. Iliacs: Proximal common iliac arteries are normal in caliber at less than 2.5 cm. IVC: Intrahepatic inferior vena cava is patent. Miscellaneous: No free abdominal fluid. IMPRESSION: 1. Heterogeneous, echogenic liver parenchyma likely related to hepatic steatosis versus sequela of ch ronic hepatocellular disease. No focal intrahepatic abnormalities. 2. Mild gallbladder wall thickening with 0.5 cm echogenic focus in the posterior wall which may repre sent a small gallbladder polyp versus adherent gallstone. No other evidence to suggest acute cholecys titis. Recommend clinical correlation. 3. Mild left hydronephrosis with incidental 2.9 cm inferior left renal cyst. Reviewed by: Arnoldo Prabhakar MD on 11/24/2022 11:21 AM PST Approved by: Arnoldo Prabhakar MD on 11/24/2022 11:21 AM PST Station ID: [id number]
[2022-11-24] MEDS ORDERED: POTASSIUM CHLORIDE INJ 10 MEQ in SODIUM CHLORIDE 0.9% 100 ML IV ONE (18:07)
--- NOTE | 2022-11-24 18:22 | PROVIDER PROGRESS NOTE ---
Progress Note November 24, 2022 6:09 PM He says that he feels good. No chest pain. He just cannot believe how tired he is and he is worried that his legs are not can to support him if he tries to go home. He dreads the idea of going to a fpc. Appetite has been good. He is eating the food here. Denies chest pain, palpitations, shortness of breath. I do worry about fluid balance because he is about 7500 cc positive with minimal urine output. Urine output was 123 cc for 24 hours yesterday. Today he is 175 cc of output. I stopped his IV fluids yesterday and he is only on oral intake right now. Exam: Temperature is 36.5. Heart rate 64. Blood pressure 137/55. Respirations 20. 96% on room air. 6 foot 2 inches tall, 92 kg. He was admitted at 85 kg. Was 93 kg yesterday and 92 kg today. Tall, alert, slightly deaf elderly gentleman. Very pleasant, cooperative. Neck is supple and no JVD Lungs have diminished breath sounds at the bases but there is no increased respiratory effort. He is maintaining O2 sats at 96%, 94% on room air Regular rate and rhythm with a slight systolic ejection murmur at the left lower sternal border Abdomen that is nontender, soft, normal bowel sounds. Had a bowel movement today. Mccormick is in place, draining dark dark yellow urine. Extremities have minimal edema Neurologically he is alert and oriented times person place time and why he is here. He is slightly deaf. Lucid historian. Normal speech patterns. He can lift his legs off the bed, and flex and extend at the hip and the knee. Labs: Sodium 122. He was admitted at 130 and has been steadily going down. Potassium was 3.3 with multiple K riders that are done in free water. BUN 93, creatinine 6.9. Lactic acid is now normal at 1.7. AST is 254, ALT 145, alk phos 51 White cell count is 9.8. Hemoglobin 11.2. Hematocrit 32.8. Platelets 136 Abdominal ultrasound done because of the LFTs. Gallbladder wall mildly thickened. Oval hyperechoic focus over the posterior wall without vascularity or posterior shadowing. It measures about half a centimeter in size. Possibly a polyp. Heterogeneous echogenic liver related to hepatic steatosis versus a sequela of chronic hepatocellular disease. The intrahepatic ducts are not dilated. The extrahepatic ducts are also small. Kidneys are normal in size. The left kidney has mild left hydronephrosis with a simple appearing inferior left renal cyst. No solid masses. Assessment/plan 1. Acute kidney failure. I am attributing it to excessive fluid losses from nausea, vomiting, diarrhea. Prostatism with urinary retention and obstructive uropathy. He also continue taking metformin and developed lactic acidosis. He was initially hydrated aggressively enough that he is 7500 cc positive as of midnight last night. I stopped IV fluids and his fluid status is +785 cc today. Urine output in mid day is 175 cc. Which is good considering his urine output for 24 hours was 123 cc yesterday. Unfortunately his BUN and creatinine have not improved. BUN is 93 and was 80 yesterday. Creatinine is 6.9, not much better than 6.6 yesterday. His anion gap is slowly coming down. And lactic acid is now normal. I was worried about the initial report from the ultrasound showing hydronephrosis but the final report reads is much more benign than the preliminary report. I do not think I need to call urology for stent. I am hoping that the patient will improve with time. I will continue to encourage p.o. intake. He does not need dialysis at this time. 2. Lactic acidosis has resolved 3. Elevated liver enzymes Hepatic steatosis, a possible polyp in the gallbladder, no other pathology. We will do liver serology for tomorrow. 4. Type 2 diabetes mellitus, controlled, not on long-term insulin. When he came in he was on metformin and glyburide. His sugars were acceptable but at 90, 78, 99. This morning is the first time his glucoses come up and it is 176. I still want to start any insulin until his glucose is consistently elevated.
[2022-11-24] MEDS: POTASSIUM CHLORIDE INJ 10 MEQ in SODIUM CHLORIDE 0.9% 100 ML IV SCH ×2 (20:26→21:39)
[2022-11-24] MEDS ORDERED: POTASSIUM CHLOR 10 MEQ/100 ML 10 MEQ/100 ML BAG IV ONE (22:00)
[2022-11-24] MEDS: ALBUTEROL NEB 2.5 MG/3 ML INH SCH (22:04)
[2022-11-25] MEDS: SODIUM CHLORIDE FLUSH 0.9% 10 ML SYRINGE IVP SCH ×4 (00:45→23:55)
[2022-11-25 05:13] LABS: BASOPHILS % (AUTO) 0.2 %; HCT - HEMATOCRIT 31.6 % (42.0-52.0); HGB - HEMOGLOBIN 10.7 g/dL (14.0-18.0); LYMPHOCYTES # (AUTO) 0.8 10^3/uL (1.5-3.5); MEAN CORPUSCULAR HEMOGLOBIN 26.5 pg (27.0-31.0); MEAN CORPUSCULAR HGB CONC 33.9 g/dL (32.0-36.0); MEAN CORPUSCULAR VOLUME 78.2 fL (80.0-94.0); MEAN PLATELET VOLUME 11.2 fL (7.4-11.4); MONOCYTES # (AUTO) 0.9 10^3/uL (0.0-1.0); NEUTROPHILS # (AUTO) 7.1 10^3/uL (1.5-6.6); NEUTROPHILS % (AUTO) 80.2 %; PLT - PLATELET COUNT 140 10^3/uL (130-450); RED BLOOD COUNT 4.04 10^6/uL (4.70-6.10); RED CELL DISTRIBUTION WIDTH 13.8 % (12.0-15.0); WHITE BLOOD COUNT 8.8 x10^3/uL (4.8-10.8)
[2022-11-25 05:35] LABS: CALCIUM 7.5 mg/dL (8.5-10.3); POTASSIUM 3.6 mmol/L (3.5-5.0)
[2022-11-25 05:44] LABS: CREATININE 7.7 mg/dL (0.6-1.2)
[2022-11-25] MEDS: carvediloL 12.5 MG TABLET PO SCH ×2 (08:23→21:03)
[2022-11-25] MEDS: TAMSULOSIN 0.4 MG CAPSULE PO SCH (08:23)
[2022-11-25] MEDS: ALBUTEROL NEB 2.5 MG/3 ML INH SCH ×3 (08:31→17:54)
--- NOTE | 2022-11-25 13:15 | PROVIDER PROGRESS NOTE ---
Progress Note November 25, 2022 12:20 PM Patient is comfortable. He has no nausea. He is not hallucinating. Eating 50 to 75% of his food. Denies chest pain, palpitation, denies shortness of breath. Active Medications Acetaminophen (Acetaminophen 325 Mg Tablet) 650 mg PO Q4HR PRN PRN Reason: Pain 1 to 4, or Fever Albuterol (Albuterol Neb 2.5 Mg/3 Ml) 2.5 mg INH BID [facility] Last Admin: 11/25/22 08:31 Dose: 2.5 mg Albuterol/Ipratropium (Ipratropium/Albuterol 3 Ml Neb) 3 ml INH Q4HR PRN PRN Reason: Wheezing Last Admin: 11/24/22 08:42 Dose: 3 ml Calcium Carbonate/Glycine (Calcium Carbonate Chew 500 Mg Tablet) 500 mg PO BID PRN PRN Reason: Heartburn Last Admin: 11/24/22 05:24 Dose: 500 mg Carvedilol (Carvedilol 12.5 Mg Tablet) 12.5 mg PO BID [facility] Last Admin: 11/25/22 08:23 Dose: 12.5 mg Ondansetron HCl (Ondansetron Odt 4 Mg Tablet) 4 mg TL Q6HR PRN PRN Reason: Nausea / Vomiting Ondansetron HCl (Ondansetron 4 Mg/2 Ml Vial) 4 mg IVP Q6HR PRN PRN Reason: Nausea / Vomiting Last Admin: 11/22/22 16:20 Dose: 4 mg Oxycodone HCl (Oxycodone 5 Mg Tablet) 5 mg PO Q4HR PRN PRN Reason: Pain 5 to 7 Sodium Chloride (Sodium Chloride Flush 0.9% 10 Ml Syringe) 10 ml IVP PRN PRN PRN Reason: NEEDED PER PROVIDER ORDERS Sodium Chloride (Sodium Chloride Flush 0.9% 10 Ml Syringe) 10 ml IVP 0100,0900,1700 [facility] Last Admin: 11/25/22 08:24 Dose: 10 ml Tamsulosin HCl (Tamsulosin 0.4 Mg Capsule) 0.4 mg PO DAILY [facility] Last Admin: 11/25/22 08:23 Dose: 0.4 mg Home Meds: Carvedilol 12.5 mg PO DAILY 11/14/16 lisinopriL [Lisinopril] 40 mg PO DAILY 11/14/16 Albuterol 2.5 mg INH BID PRN 11/17/16 Metformin HCl [Glucophage] 1,000 mg PO BID 11/17/16 Zinc 50 mg PO HS 11/17/16 Apixaban [Eliquis] 1 tab PO BID 05/24/17 Amlodipine Besylate [Norvasc] 1 tab PO DAILY 11/22/22 Clopidogrel [Plavix] 1 tab PO DAILY 11/22/22 Empagliflozin [Jardiance] 1 tab PO DAILY 11/22/22 Insulin Detemir [Levemir] 10 unit SQ QPM 11/22/22 Mesalamine [Asacol Hd] 2 tab PO BID 11/22/22 Montelukast [Singulair] 1 tab PO QPM 11/22/22 Rosuvastatin Calcium [Crestor] 1 tab PO QPM 11/22/22 Tamsulosin [Flomax] 1 cap PO DAILY 11/22/22 glipiZIDE [Glucotrol] 1 tab PO BID 11/22/22 oxyBUTYnin chloride [Oxybutynin Chloride] 1 tab PO DAILY 11/22/22 Exam: Temperature 36.4. Heart rate 74. Blood pressure 134/59. Respirations 16 6 feet 2 inches male, 94 kg, comfortable, alert, oriented Neck does not have any JVD Lungs have diminished breath sounds at the bases and he is developing faint crackles but they clear with a good deep cough. No respiratory distress. Regular rate and rhythm with a systolic ejection murmur Abdomen is soft, nontender, normal bowel sounds and he had a bowel movement yesterday and a bowel movement today Extremities do not have edema Neurologically deaf, but alert and oriented, follows commands, appropriate answers to questions, lucid speech pattern, no focal deficits, and continues to have bilateral lower extremity weakness that bothers him because he feels like his legs will not support him. But they are mobile, and they are 4/5 strength. He does have a fairly dense peripheral neuropathy that covers all of his toes and feet up to about the proximal ankles White cell count 8.8, hemoglobin 10.7, platelets 140 Sodium 122, potassium is now normal at 3.6. This patient was getting anywhere between 60 to 80 mEq a day to get his potassium up. Today is the first day he will not need potassium supplementation. Anion gap slowly trends down. He was 24 when he was admitted. Yesterday was 15 and today he is 14. Creatinine on admission was 5.9. Today it is 7.7. BUN on admission was 75 and it is now 98. CO2 level remains stable. He is 16 and he has remained between 16 and 17 since admission. Assessment/plan 1. Acute kidney failure With oliguria. I am attributing this to ATN. He had excessive fluid losses from nausea, vomiting, diarrhea. He had urinary retention from prostatism and developed probable mild obstructive uropathy. And then on top of that he continue taking metformin and developed lactic acidosis. Urinalysis does not show blood. There are no granular casts. He had proteinuria. His abdominal ultrasound was done for both kidneys and for liver. Gallbladder is okay, and he has mild hydronephrosis on the left kidney but no masses. He continues to have minimal urine output. He initially had 650 cc in his bladder when we put in a Mccormick. Since November 22 he is put out 623 cc but has received 11,260 cc in.So far he is not short of breath. I am hearing new faint crackles but they are not bothering him. He is oxygen requirement is stable at room air. Blood pressure is stable. Carbon dioxide is stable. Anion gap slowly improving. But BUN is 98 today and creatinine is 7.7. He does not need dialysis at this time. Potassium has been hypokalemic which is puzzlging since renal failure usually results in hyperkalemia. He has needed many K riders to get him to normal today. But I am worried about future dialysis needs if he does slip into complete renal failure. I spoken to [facility] and spoke to their dag sprayer on-call, Dr. Sr. He was at [phone]. He does feel that the patient should be transferred to higher level of care. He agrees that this patient may need dialysis. Does not need it right now but may need it down the road. I then called the transfer center for [facility] and there were no beds. [facility] has put the patient on a wait list. [facility] has no beds. [facility] has put him on a wait list, and I have sent them the facesheet and pushed over his abdominal ultrasound. says that they do not have any beds. They have taken his name and also taken information and I can call them back if I continue not to have any beds. [facility] does not have a wait list and they have no beds. Patient is a [facility] patient and our disease case manager reach out to the [facility] and they have no beds. I have called [facility]. Currently there coordinator is on another call and I have left my name, my number, and patient information. The dag sprayer at [facility], Heather Lyons MD, did recommend resuming this patient's IV fluids. D5 with 3 Amps of bicarb at 100 cc an hour. If he starts to have symptoms of fluid overload, use Lasix 100 mg IV push. But start with the D5 and wait. She is hoping I can convert him from oliguric renal failure to nonoliguric renal failure. I am excepting her recommendations and will start the D5 drip. 2. Elevated liver enzymes. Serology for hepatitis is pending. Gallbladder ultrasound shows a polyp in the gallbladder but no other pathology. We will continue to monitor. He may have liver failure from the preliminary lactic acidosis that was present on a dmission. 3. Type 2 diabetes mellitus, controlled, not on long-term insulin. When he came in, his home medications were metformin and glyburide. He was taking those medications in spite of nausea, vomiting, and diarrhea. He states that his instructions on his medications did not include stopping the metformin when he became acutely ill. I described to he and his daughter the link between metformin and lactic acidosis. Glucoses on admission were in the 90s. Yesterday was the first time he went to a higher of 176. Today he is 148. I will not be changing my current management. Currently he is not getting sliding scale. If his glucose is consistently elevated I will start sliding scale insulin. 4. Lactic acidosis resolved 5. Hyponatremia. Sodium started at 130 on admission and has come down to 122. This gentleman has received normal saline, but also sometimes 600 cc a day of potassium riders which are free water. Yesterday I gave him normal saline potassium riders and his sodium is staying stable and potassium is now stable. Since he is asymptomatic with a sodium of 122, I will hold off on treating that. But I do worry, with instructions from the dag sprayer, that the D5 will drive his sodium lower. We will monitor regularly twice a day
[2022-11-25] MEDS: SODIUM BICARBONATE 150 MEQ in DEXTROSE 5% 1,000 ML IV SCH (15:44)
[2022-11-25] MEDS: IPRATROPIUM/ALBUTEROL 3 ML NEB INH PRN (17:52)
[2022-11-25 22:49] LABS: CALCIUM 7.7 mg/dL (8.5-10.3); POTASSIUM 3.6 mmol/L (3.5-5.0)
[2022-11-25 22:51] LABS: CREATININE 8.2 mg/dL (0.6-1.2)
[2022-11-26] MEDS: SODIUM BICARBONATE 150 MEQ in DEXTROSE 5% 1,000 ML IV SCH ×2 (03:13→13:32)
[2022-11-26 05:31] LABS: BASOPHILS % (AUTO) 0.2 %; HCT - HEMATOCRIT 29.6 % (42.0-52.0); HGB - HEMOGLOBIN 10.2 g/dL (14.0-18.0); LYMPHOCYTES # (AUTO) 0.7 10^3/uL (1.5-3.5); LYMPHOCYTES % (AUTO) 8.7 %; MEAN CORPUSCULAR HEMOGLOBIN 26.8 pg (27.0-31.0); MEAN CORPUSCULAR HGB CONC 34.5 g/dL (32.0-36.0); MEAN CORPUSCULAR VOLUME 77.9 fL (80.0-94.0); MEAN PLATELET VOLUME 11.1 fL (7.4-11.4); MONOCYTES # (AUTO) 0.8 10^3/uL (0.0-1.0); MONOCYTES % (AUTO) 9.3 %; NEUTROPHILS # (AUTO) 6.7 10^3/uL (1.5-6.6); NEUTROPHILS % (AUTO) 81.3 %; PLT - PLATELET COUNT 143 10^3/uL (130-450); WHITE BLOOD COUNT 8.2 x10^3/uL (4.8-10.8)
[2022-11-26 05:57] LABS: CALCIUM 7.4 mg/dL (8.5-10.3); POTASSIUM 3.8 mmol/L (3.5-5.0)
[2022-11-26 06:10] LABS: CREATININE 8.2 mg/dL (0.6-1.2)
[2022-11-26] MEDS: ALBUTEROL NEB 2.5 MG/3 ML INH SCH ×2 (07:21→18:22)
[2022-11-26] MEDS: SODIUM CHLORIDE FLUSH 0.9% 10 ML SYRINGE IVP SCH ×2 (08:21→17:44)
[2022-11-26] MEDS: TAMSULOSIN 0.4 MG CAPSULE PO SCH (08:21)
[2022-11-26] MEDS: carvediloL 12.5 MG TABLET PO SCH (08:21)
--- NOTE | 2022-11-26 11:56 | PROVIDER PROGRESS NOTE ---
Progress Note November 26, 2022 11:45 AM He says he just feels like he is losing ground and that he is getting weaker, more tired. But appetite is still good. Legs just do not want to support him and he feels unsteady on his feet. I told him that sometimes BUN and creatinine can do that to people. It makes him nauseated, take weight or appetite, and hallucinations can sometimes ensue. He looks at me and tells me "great, I cannot wait for that to happen". Otherwise he denies chest pain. Cough, shortness of breath. No abdominal pain. Active Medications Acetaminophen (Acetaminophen 325 Mg Tablet) 650 mg PO Q4HR PRN PRN Reason: Pain 1 to 4, or Fever Albuterol (Albuterol Neb 2.5 Mg/3 Ml) 2.5 mg INH BID [facility] Last Admin: 11/26/22 07:21 Dose: 2.5 mg Albuterol/Ipratropium (Ipratropium/Albuterol 3 Ml Neb) 3 ml INH Q4HR PRN PRN Reason: Wheezing Last Admin: 11/25/22 17:52 Dose: 3 ml Calcium Carbonate/Glycine (Calcium Carbonate Chew 500 Mg Tablet) 500 mg PO BID PRN PRN Reason: Heartburn Last Admin: 11/24/22 05:24 Dose: 500 mg Carvedilol (Carvedilol 12.5 Mg Tablet) 12.5 mg PO BID [facility] Last Admin: 11/26/22 08:21 Dose: 12.5 mg Sodium Bicarbonate 150 meq/ (Dextrose) 1,150 mls @ 100 mls/hr IV .[id number] [facility] Last Admin: 11/26/22 03:13 Dose: 100 mls/hr Ondansetron HCl (Ondansetron Odt 4 Mg Tablet) 4 mg TL Q6HR PRN PRN Reason: Nausea / Vomiting Ondansetron HCl (Ondansetron 4 Mg/2 Ml Vial) 4 mg IVP Q6HR PRN PRN Reason: Nausea / Vomiting Last Admin: 11/22/22 16:20 Dose: 4 mg Oxycodone HCl (Oxycodone 5 Mg Tablet) 5 mg PO Q4HR PRN PRN Reason: Pain 5 to 7 Sodium Chloride (Sodium Chloride Flush 0.9% 10 Ml Syringe) 10 ml IVP PRN PRN PRN Reason: NEEDED PER PROVIDER ORDERS Sodium Chloride (Sodium Chloride Flush 0.9% 10 Ml Syringe) 10 ml IVP 0100,0900,1700 [facility] Last Admin: 11/26/22 08:21 Dose: Not Given Tamsulosin HCl (Tamsulosin 0.4 Mg Capsule) 0.4 mg PO DAILY [facility] Last Admin: 11/26/22 08:21 Dose: 0.4 mg Home Meds: Carvedilol 12.5 mg PO DAILY 11/14/16 lisinopriL [Lisinopril] 40 mg PO DAILY 11/14/16 Albuterol 2.5 mg INH BID PRN 11/17/16 Metformin HCl [Glucophage] 1,000 mg PO BID 11/17/16 Zinc 50 mg PO HS 11/17/16 Apixaban [Eliquis] 1 tab PO BID 05/24/17 Amlodipine Besylate [Norvasc] 1 tab PO DAILY 11/22/22 Clopidogrel [Plavix] 1 tab PO DAILY 11/22/22 Empagliflozin [Jardiance] 1 tab PO DAILY 11/22/22 Insulin Detemir [Levemir] 10 unit SQ QPM 11/22/22 Mesalamine [Asacol Hd] 2 tab PO BID 11/22/22 Montelukast [Singulair] 1 tab PO QPM 11/22/22 Rosuvastatin Calcium [Crestor] 1 tab PO QPM 11/22/22 Tamsulosin [Flomax] 1 cap PO DAILY 11/22/22 glipiZIDE [Glucotrol] 1 tab PO BID 11/22/22 oxyBUTYnin chloride [Oxybutynin Chloride] 1 tab PO DAILY 11/22/22 Exam: Temperature 36.6, heart rate 69, blood pressure 149/51, respirations 20, 95% on room air 6 foot 2 inches tall, 94 kg. He was 92 kg on November 24. His stayed stable with his weight. 24 urine output was 315 cc yesterday, and 250 cc as of midnight today. He was +1213 cc and fluid balance yesterday. This is mainly from the D5 bicarb drip I started.. Depressed appearing elderly gentleman, with a low gravelly voice, male pattern baldness, mustache, appears fatigued but no acute distress Neck is supple no JVD Lungs are clear without any increased respiratory effort, diminished at the bases, still the same minimal crackles that clear with cough Abdomen is soft, nontender, hypoactive bowel sounds, last bowel movement yesterday. Mccormick is draining dark desmond urine. Extremities without edema Labs: Sodium 123, potassium 3.8, BUN 106 and rising, creatinine 8.2 and rising, carbon dioxide 19, anion gap 14 White cell count 8.2, hemoglobin 10.2, hematocrit 29.6, platelets 143 Assessment/plan 1. Acute kidney failure/ATN with oliguria. His presenting symptoms of nausea, vomiting, diarrhea have resolved with initial IV fluids for support. In spite of this his BUN and creatinine are not improving and continue to slowly rise. Starting November 25 I have started transfer process. I spoken to [facility], [place], [facility], [facility], [place], [facility]. There are no beds. I have also called [facility]. He is on a wait list for 2 facilities. The loan auditor at [facility], Dr. Dover, recommended a bicarb drip. That has been ongoing since yesterday. Plan: Continue to seek transfer to higher level of care. Patient says that he does w ant dialysis. I did ask him if he were to need dialysis permanently what he wanted, and he says yes. He says he is not enthusiastic about this, but he wants to continue to see his grandchildren grow. This morning alone I have spent 30 minutes on the phone trying to get him transferred. 2. Elevated liver enzymes. Serology for hepatitis panel pending. Liver ultrasound shows steatosis, and a polyp in the gallbladder. Mild left hydronephrosis. 3. Type 2 diabetes mellitus, controlled, not on long-term insulin. He is eating 50 to 100% of his food. I have not started sliding scale insulin because he was on metformin and sulfonylurea for admission and sulfonylurea has a long half-life. The first 2 days his glucose was under 100. Starting November 24 fasting glucose 176, yesterday he was 148 and 213, today he is 181. Plan: Low-dose sliding scale insulin before meals will be started by me since his sugar is climbing 4. Lactic acidosis resolved 5. Hyponatremia. His sodium was 130 on admission and is come down to 122 with aggressive IV hydration using normal saline. I then used 60 to 80 mEq K riders which are in free water on a daily basis until November 25. I hope to stop his IV fluids but then I resumed IV fluids with D5 bicarb drip yesterday. Sodium is going to 123 with those drips. But I will continue to monitor it closely to make sure I do not impact that. 6. Urinary retention. This is a gentleman whose had a prostatectomy. He has hesitancy, urgency and nocturia. All of this worsened with his URI from COVID. COVID was 2 weeks before admission. So we think his positive status currently is strictly residual PCR because he has no symptoms. Mccormick needed to be placed on admission. Mccormick continues until he gets over this acute kidney failure. Abdominal ultrasound shows mild left hydronephrosis. I think this is from the urinary retention he presented with on admission. Does not need a urologic consult for that right now. He is on Flomax. 7. Generalized weakness. From my perspective I am most worried about his kidney failure. The patient is most worried about his generalized weakness. He is afraid he will be able to get home because he is too weak. I told him that I am hoping that he will get better. And he is working with physical therapy. He will start working with them again tomorrow.
--- NOTE | 2022-11-26 17:39 | DISCHARGE SUMMARY ---
"Discharge Summary Admit Date: 11/22/22 Discharge Date: 11/26/22 Discharging Provider: Fozia Reynoso MD Primary Care Provider: JAVIER Benitez Code Status: Do Not Attempt Resuscitation Condition at Discharge: Serious Discharge Disposition: 02 Transfer Acute Care Hosp - DIAGNOSES Discharge Diagnoses with Status of Each Condition: 1. Acute kidney failure with oliguria 2. ATN 3. Nausea vomiting and diarrhea resolved 4. Acute on chronic urinary retention, Mccormick in place 5. Elevated liver enzymes 6. Type 2 diabetes mellitus, controlled not on long-term insulin 7. Hyponatremia 8. Hypokalemia resolved 9. Lactic acidosis resolved 10. COVID infection 2 weeks ago resolved 11. Dehydration resolved - HPI History of Present Illness: He has been sick for about 1-1/2 weeks with myalgias, malaise, chest congestion, cough, which then proceeded to nausea, vomiting, diarrhea. He also has problems with his prostate and has not had much urine output. He thinks that he has not had any urine output for the last day and 1/2 to 2 days. He has not been able to eat eat very much. But he tells me that he has been vigilant about making sure that he takes his metformin and glyburide. He is a diabetic. For the last 2 days he has been getting weaker and weaker and has been harder for him to get out of bed. Today he was walking with his 's walker when his legs just would not support him and he slumped. That is when family called an ambulance. In comparing what he was like this morning and this afternoon, he was definitely ill-appearing, fatigued appearing, and dehydrated oral mucosa this morning. This afternoon he is much more cheerful, alert, and has been able to keep food down. He is not nearly as hungry. He was diagnosed as COVID-positive in the ER with a clear chest x-ray. He has acute renal failure with a creatinine of 5.9. His glucose was low in the emergency room. At 90. With hydration his repeat glucose was 78. After a liter and a half his creatinine was still 5.9. After discussing this case with the emergency room provider I came to the conclusion that this patient most likely had COVID and became ill with COVID and chest congestion/URI. He then had decreased p.o. intake, with increased loss of fluids from diarrhea, and started taking [id number] antihistamines to help with the chest congestion. That in turn result in detrusor muscle contraction and worsening lower urinary tract symptoms of obstruction on top of his chronic BPH with LUTS. He is now dehydrated, with acute urinary retention, and is suffering from lactic acidosis from not only dehydration but metformin. I also worry about hypoglycemia because of the long half-life and a sulfonylurea in the face of renal failure. The patient is DO NOT RESUSCITATE. Our main goal will be to hydrate him, place the Mccormick to release his urine retention, treat the hypokalemia, and make sure he does not have a UTI with urinalysis. Will reassess tomorrow morning. On the basis of seeing him this morning and this afternoon, he is already improved with alertness, and affect by the afternoon - CONSULTS | PROCEDURES Procedures: Chest x-ray without acute cardiopulmonary pathology Abdominal ultrasound with heterogeneous echogenic liver parenchyma related to hepatic steatosis. A gallbladder polyp. No cholecystitis. Mild left hydronephrosis. - HOSPITAL COURSE Hospital Course: Acute kidney failure/ATN with oliguria. His presenting symptoms of nausea, vomiting, diarrhea have resolved with initial IV fluids for support. In spite of this his BUN and creatinine are not improving and continue to slowly rise. Starting November 25 I have started transfer process. I spoken to [facility], [facility], [facility], [place], [facility]. There are no beds. I have also called [facility]. He is on a wait list for 2 facilities. The bakery decorator at [facility], Dr. Lyons, recommended a bicarb drip. That has been ongoing since 11/25. I asked him if he wanted dialysis. He said he really did not want it but if it meant keeping him alive he would do it because he wants to see his grandchildren grow. I did prepare him for the possibility that this might be permanent. Would he still wanted if it was a Permanent part of his life and he said yes. [facility] transfer center gave me a call. They have a bed for him. He has been accepted by Dr. Ordaz. Elevated liver enzymes. Serology for hepatitis panel pending. Liver ultrasound shows steatosis, and a polyp in the gallbladder. Mild left hydronephrosis. Type 2 diabetes mellitus, controlled, not on long-term insulin. He is eating 50 to 100% of his food. I have not started sliding scale insulin because he was on metformin and sulfonylurea for admission and sulfonylurea has a long half-life. The first 2 days his glucose was under 100. Starting November 24 fasting glucose 176, yesterday he was 148 and 213, today he is 181. Low-dose sliding scale insulin before meals will be started by me since his sugar is climbing Lactic acidosis resolved Hyponatremia. His sodium was 130 on admission and is come down to 122 with aggressive IV hydration using normal saline. I then used 60 to 80 mEq K riders which are in free water on a daily basis until November 25. I hope to stop his IV fluids but then I resumed IV fluids with D5 bicarb drip yesterday. Sodium is going to 123 with those drips. But I will continue to monitor it closely to make sure I do not impact that.Sodium could be from fluid overload or pseudo hyponatremia from his glucose. But his glucose has not been that elevated. Urinary retention. This is a gentleman whose had a prostatectomy. He has hesitancy, urgency and nocturia. All of this worsened with his URI from COVID. COVID was 2 weeks before admission. So we think his positive status currently is strictly residual PCR because he has no symptoms. Mccormick needed to be placed on ad mission. Mccormick continues until he gets over this acute kidney failure. Abdominal ultrasound shows mild left hydronephrosis. I think this is from the urinary retention he presented with on admission. Does not need a urologic consult for that right now. He is on Flomax. Generalized weakness. From my perspective I am most worried about his kidney failure. The patient is most worried about his generalized weakness. He is afraid he will be able to get home because he is too weak. I told him that I am hoping that he will get better. And he is working with physical therapy. He will start working with them again tomorrow. Today is his birthday. I let his daughter bring him in cinnamon bread, sugar-free to celebrate. At discharge temperature 36.9. Heart rate 68. Blood pressure 139/62. Respirations 20. 94% on room air. He is 6 feet 2 inches tall, and weighs 94 kg. On admission he was 93 kg. There is a report of 85 kg from the ER but we do not think it is accurate. He was in the ER most of the day before we can get a bed for him. He is alert, oriented, and just tired. He would dearly love to go home. Still making his own decisions. and daughter have come every day to be at his bedside and keeping company. Neck is supple with shotty adeno rubi. Lungs are starting to develop minimal crackles but they do clear with a good cough. No respiratory distress and no increased respiratory effort or use of accessory muscles to speak to me or to move. He has a regular rate and rhythm with a systolic ejection murmur. The abdomen is soft, obese, nontender, quiet bowel sounds. He had a bowel movement yesterday and today. Mccormick catheter is in place draining brownish-desmond urine. He does not have any edema of his lower extremities. He has been very good about getting up out of bed and sitting in a chair at least 3 times a day for meals. He does get a little bit dyspneic with this. He is slightly deaf. Greater than 30 minutes was spent coordinating discharge - ALLERGIES Allergies/Adverse Reactions: Allergies Allergy/AdvReac Type Severity Reaction Status Date / Time Sulfa (Sulfonamide Allergy Unknown Verified 11/22/22 06:44 Antibiotics) - MEDICATIONS Home Medications: Ambulatory Orders Medication Instructions Recorded Confirmed Carvedilol 12.5 mg PO DAILY 11/14/16 11/22/22 lisinopriL [Lisinopril] 40 mg PO DAILY 11/14/16 11/22/22 Albuterol 2.5 mg INH BID PRN 11/17/16 11/22/22 Metformin HCl [Glucophage] 1,000 mg PO BID 11/17/16 11/22/22 Zinc 50 mg PO HS 11/17/16 11/22/22 Apixaban [Eliquis] 1 tab PO BID 05/24/17 11/22/22 Amlodipine Besylate [Norvasc] 1 tab PO DAILY 11/22/22 11/22/22 Clopidogrel [Plavix] 1 tab PO DAILY 11/22/22 11/22/22 Empagliflozin [Jardiance] 1 tab PO DAILY 11/22/22 11/22/22 Insulin Detemir [Levemir] 10 unit SQ QPM 11/22/22 11/22/22 Mesalamine [Asacol Hd] 2 tab PO BID 11/22/22 11/22/22 Montelukast [Singulair] 1 tab PO QPM 11/22/22 11/22/22 Rosuvastatin Calcium [Crestor] 1 tab PO QPM 11/22/22 11/22/22 Tamsulosin [Flomax] 1 cap PO DAILY 11/22/22 11/22/22 glipiZIDE [Glucotrol] 1 tab PO BID 11/22/22 11/22/22 oxyBUTYnin chloride [Oxybutynin 1 tab PO DAILY 11/22/22 11/22/22 Chloride] - LABS Result Diagrams: 11/26/22 05:21 11/26/22 05:21"
--- NOTE | 2022-11-26 17:52 | Discharge Plan ---
Discharge Plan Problem Reviewed?: Yes Disposition: 02 Transfer Acute Care Hosp Condition: Serious No Smoking: If you smoke, Please STOP! Call for help.
[2022-11-26 19:06] VITALS: BP 150/68
[2022-11-27 03:07] LABS: HBsAG SCREEN Negative (Negative); HCV AB Non Reactive (Non Reactive); HEPATITIS B CORE IGM AB Negative (Negative)
== END 2022-11-26 19:35 | disposition short-term general hospital (02) | DRG 682 ==
LOC: EDUNIT# → ED 06:30 → MS2 10:54
PROVIDERS: ADMIT Specialist; ATTEND Specialist
DX: N17.0 Acute kidney failure with tubular necrosis (principal); U07.1 COVID-19; E87.1 Hypo-osmolality and hyponatremia; E87.20 Acidosis, unspecified; N13.8 Other obstructive and reflux uropathy; R11.2 Nausea with vomiting, unspecified; E86.0 Dehydration; E87.6 Hypokalemia; E87.8 Other disorders of electrolyte and fluid balance, not elsewhere classified; I10 Essential (primary) hypertension; I25.10 Atherosclerotic heart disease of native coronary artery without angina pectoris; I48.91 Unspecified atrial fibrillation; J44.9 Chronic obstructive pulmonary disease, unspecified; E11.9 Type 2 diabetes mellitus without complications; R53.1 Weakness; R55 Syncope and collapse; I44.7 Left bundle-branch block, unspecified; Z66 Do not resuscitate; R74.8 Abnormal levels of other serum enzymes; N40.1 Benign prostatic hyperplasia with lower urinary tract symptoms; R33.8 Other retention of urine; R39.15 Urgency of urination; R35.1 Nocturia; T38.3X5A Adverse effect of insulin and oral hypoglycemic [antidiabetic] drugs, initial encounter; R39.11 Hesitancy of micturition; K21.9 Gastro-esophageal reflux disease without esophagitis; I87.8 Other specified disorders of veins; E11.42 Type 2 diabetes mellitus with diabetic polyneuropathy; N13.30 Unspecified hydronephrosis; H91.90 Unspecified hearing loss, unspecified ear; K76.0 Fatty (change of) liver, not elsewhere classified; Z87.891 Personal history of nicotine dependence; Z79.84 Long term (current) use of oral hypoglycemic drugs; Z79.01 Long term (current) use of anticoagulants
CPT/HCPCS: 36415; 36600; 51798; 71045; 76700; 80048; 80053; 80076; 81001; 82009; 82803; 83605; 83690; 83735; 85025; 86705; 86709; 86803; 87340; 87633; 87635; 93005; 94640; 96361; 96365; 97162; 97165; 97530; 99284; 99285; A9270; J3490; J7120; 81003; 87086

== ENCOUNTER 2023-04-19 11:25 | Outpatient (CLI) | payer OTHER | END 2023-04-19 11:26 | disposition home or self-care (01) | LOC: LAB.R 11:25 | PROVIDERS: ATTEND Nurse Practitioner Family | DX: N17.9 Acute kidney failure, unspecified (principal); E11.22 Type 2 diabetes mellitus with diabetic chronic kidney disease | CPT/HCPCS: 80053; 83036; 85025 ==

== ENCOUNTER 2023-08-26 16:26 | Emergency (ER) | payer OTHER ==
--- NOTE | 2023-08-26 17:37 | XRAY Report ---
PROCEDURE: Chest 1 View X-Ray INDICATIONS: cough TECHNIQUE: One view of the chest was acquired. COMPARISON: None. FINDINGS: Surgical changes and devices: None. Lungs and pleura: Right basilar airspace opacity. Mediastinum: Mediastinal contours appear normal. Heart size is normal. Bones and chest wall: No suspicious bony lesions. Overlying soft tissues appear unremarkable. IMPRESSION: Right basilar airspace opacity, either atelectasis or infection. Reviewed by: Hilario Roa on 08/26/2023 4:36 PM [facility] Approved by: Hilario Roa on 08/26/2023 4:36 PM [facility] Station ID: [id number]
[2023-08-26 17:42] LABS: B. PARAPERTUSSIS- RESP PCR PAN NOT DETECTED; B. PERTUSSIS- RESP PCR PANEL NOT DETECTED; C. PNEUMONIAE- RESP PCR PANEL NOT DETECTED; CORONAVIRUS 229E-RESP PCR NOT DETECTED; CORONAVIRUS HKU1-RESP PCR NOT DETECTED; CORONAVIRUS NL63-RESP PCR NOT DETECTED; CORONAVIRUS OC43-RESP PCR NOT DETECTED; HUMAN METAPNEUMOVIRUS NOT DETECTED; INFLUENZA A- RESP PCR PANEL NOT DETECTED; INFLUENZA B - RESP PCR PANEL NOT DETECTED; M. PNEUMONIAE- RESP PCR PANEL NOT DETECTED; PARAINFLUENZA VIRUS 1 NOT DETECTED; PARAINFLUENZA VIRUS 2 NOT DETECTED; PARAINFLUENZA VIRUS 3 NOT DETECTED; PARAINFLUENZA VIRUS 4 NOT DETECTED; RHINOVIRUS/ENTEROVIRUS NOT DETECTED; RSV- RESP PCR PANEL NOT DETECTED; SARS-CoV-2 -RESP PCR PANEL NOT DETECTED
[2023-08-26] MEDS ORDERED: IPRATROPIUM/ALBUTEROL 3 ML NEB INH STA (18:32)
[2023-08-26] MEDS ORDERED: AMOX/CLAV 875 MG/125 MG TABLET PO STA ×2 (18:33→19:40)
[2023-08-26] MEDS ORDERED: DOXYCYCLINE 100 MG TABLET PO STA (18:33)
--- NOTE | 2023-08-26 18:37 | ED Physician Documentation ---
History of Present Illness - Stated complaint Stated Complaint: SOA - Chief complaint Chief Complaint: Resp - History obtained from History obtained from: Patient, Family - History of Present Illness Pain level max: 0 Pain level now: 0 - Additonal information Additional information: Patient is an 82-year-old male with a history of COPD who presents to the emergency department with cough for the past 2 days, green sputum. No fevers. Occasional chills. No pain. He states he feels fatigued and tired. Uses albuterol at home. Does not know his other medications. No respiratory distress. Does not feel more short of breath than usual. Review of Systems Constitutional: denies: Fever, Chills GI: denies: Vomiting, Diarrhea Skin: denies: Rash Musculoskeletal: denies: Neck pain, Back pain PD PAST MEDICAL HISTORY - Past Medical History Cardiovascular: Hypertension, Coronary artery disease, Atrial fibrillation Respiratory: COPD Neuro: None Endocrine/Autoimmune: Type 2 diabetes GI: GERD : Nocturia, Frequency Psych: None Musculoskeletal: Osteoarthritis Derm: Other - Past Surgical History Past Surgical History: Yes Cardiovascular: Coronary stent Derm: Skin cancer surgery - Present Medications Home Medications: Ambulatory Orders Medication Instructions Recorded Confirmed Carvedilol 12.5 mg PO DAILY 11/14/16 11/22/22 lisinopriL [Lisinopril] 40 mg PO DAILY 11/14/16 11/22/22 Albuterol 2.5 mg INH BID PRN 11/17/16 11/22/22 Metformin HCl [Glucophage] 1,000 mg PO BID 11/17/16 11/22/22 Zinc 50 mg PO HS 11/17/16 11/22/22 Apixaban [Eliquis] 1 tab PO BID 05/24/17 11/22/22 Amlodipine Besylate [Norvasc] 1 tab PO DAILY 11/22/22 11/22/22 Clopidogrel [Plavix] 1 tab PO DAILY 11/22/22 11/22/22 Empagliflozin [Jardiance] 1 tab PO DAILY 11/22/22 11/22/22 Insulin Detemir [Levemir] 10 unit SQ QPM 11/22/22 11/22/22 Mesalamine [Asacol Hd] 2 tab PO BID 11/22/22 11/22/22 Montelukast [Singulair] 1 tab PO QPM 11/22/22 11/22/22 Rosuvastatin Calcium [Crestor] 1 tab PO QPM 11/22/22 11/22/22 Tamsulosin [Flomax] 1 cap PO DAILY 11/22/22 11/22/22 glipiZIDE [Glucotrol] 1 tab PO BID 11/22/22 11/22/22 oxyBUTYnin chloride [Oxybutynin 1 tab PO DAILY 11/22/22 11/22/22 Chloride] Amox/Clav 875/125 [Augmentin] 1 tab PO Q12H #20 tablet 08/26/23 Doxycycline Monohydrate 100 mg PO BID #20 cap 08/26/23 - Allergies Allergies/Adverse Reactions: Allergies Allergy/AdvReac Type Severity Reaction Status Date / Time Sulfa (Sulfonamide Allergy Unknown Verified 08/26/23 16:34 Antibiotics) - Social History Does the pt smoke?: No Smoking Status: Never smoker Does the pt drink ETOH?: Yes Does the pt have substance abuse?: No - Immunizations Immunizations are current?: Yes - POLST Patient has POLST: No PD ED PE NORMAL - Vitals Vital signs reviewed: Yes - General General: Alert and oriented X 3, No acute distress - HEENT HEENT: Moist mucous membranes - Neck Neck: Supple, no meningeal sign - Cardiac Cardiac: RRR, Strong equal pulses - Respiratory Respiratory: No respiratory distress, Other (Diminished breath sounds bilaterally, mild wheezing) - Abdomen Abdomen: Soft, Non tender, Non distended - Derm Derm: Warm and dry - Extremities Extremities: No edema - Neuro Neuro: Alert and oriented X 3 - Psych Psych: Normal mood, Normal affect Results - Vitals Vitals: Vital Signs - 24 hr 08/26/23 08/26/23 08/26/23 16:29 18:07 18:45 Temperature 36.4 C L Heart Rate 92 84 83 Respiratory 18 18 20 Rate Blood Pressure 183/84 H 155/70 H O2 Saturation 97 97 08/26/23 19:59 Temperature Heart Rate 80 Respiratory 16 Rate Blood Pressure 156/69 H O2 Saturation 98 Oxygen O2 Source Room air - Labs Labs: Laboratory Tests 08/26/23 08/26/23 16:37 18:51 Sodium 139 Potassium 2.7 L Chloride 100 L Carbon Dioxide 31 Anion Gap 8.0 BUN 37 H Creatinine 2.0 H Estimated GFR (MDRD) 32 L Glucose 150 H Calcium 9.6 Nasal Adenovirus (PCR) NOT DETECTED Nasal B. parapertussis DNA (PCR) NOT DETECTED Nasal Coronavir 229E PCR NOT DETECTED Nasal Coronavir HKU1 PCR NOT DETECTED Nasal Coronavir NL63 PCR NOT DETECTED Nasal Coronavir OC43 PCR NOT DETECTED Nasal Enterovir/Rhinovir PCR NOT DETECTED Nasal Influenza B PCR NOT DETECTED Nasal Influenza A PCR NOT DETECTED Nasal Parainfluen 1 PCR NOT DETECTED Nasal Parainfluen 2 PCR NOT DETECTED Nasal Parainfluen 3 PCR NOT DETECTED Nasal Parainfluen 4 PCR NOT DETECTED Nasal RSV (PCR) NOT DETECTED Nasal B.pertussis DNA PCR NOT DETECTED Nasal C.pneumoniae (PCR) NOT DETECTED Dewey Human Metapneumo PCR NOT DETECTED Nasal M.pneumoniae (PCR) NOT DETECTED Nasal SARS-CoV-2 (PCR) NOT DETECTED - Rads (name of study) Chest x-ray Relevant Findings:: Final report received, See rad report PD Medical Decision Making - ED course Complexity details: reviewed results, re-evaluated patient, considered differential, d/w patient ED course: 82-year-old male with COPD appears to have of slight pneumonia on chest x-ray. Right basilar airspace opacity. He is not hypoxic. No respiratory distress. Given a nebulizer treatment here. His last creatinine here was over 8. Unclear if he has had a recently repeated creatinine. A basic metabolic panel was drawn. Shows his creatinine currently is at 2.0. we will prescribe him full dose Augmentin and doxycycline for his pneumonia. Patient is very well- appearing, nontoxic. Patient and family counseled regarding signs and symptoms for which I believe and urgent re-evaluation would be necessary. Patient with good understanding of and agreement to plan and is comfortable going home at this time This document was made in part using voice recognition software. While efforts are made to proofread this document, sound alike and grammatical errors may occur. Departure - Departure Disposition: 01 Home, Self Care Clinical Impression: Hypokalemia Pneumonia Qualifiers: Pneumonia type: due to unspecified organism Laterality: right Lung location: lower lobe of lung Qualified Code(s): J18.9 - Pneumonia, unspecified organism Chronic renal disease Qualifiers: Chronic kidney disease stage: unspecified stage Qualified Code(s): N18.9 - Chronic kidney disease, unspecified Condition: Good Instructions: ED Pneumonia Adult Follow-Up: Matilda Dunlap ARNP [Primary Care Provider] - Prescriptions: Amox/Clav 875/125 [Augmentin] 1 tab PO Q12H #20 tablet Doxycycline Monohydrate 100 mg PO BID #20 cap Comments: Your prescriptions were sent to [facility] in [place]. Please take all antibiotics until gone. Please return if you worsen. Continue your breathing treatments at home as well. You appear to have a mild right-sided pneumonia tonight. Forms: PCP List Discharge Date/Time: 08/26/23 20:01
[2023-08-26 19:10] LABS: CALCIUM 9.6 mg/dL (8.5-10.3); POTASSIUM 2.7 mmol/L (3.5-4.5)
[2023-08-26] MEDS ORDERED: POTASSIUM BICARB 25 MEQ TABLET PO STA (19:40)
[2023-08-26 20:04] VITALS: BP 156/69; O2SAT 98
== END 2023-08-26 20:01 | disposition home or self-care (01) ==
LOC: ED 16:26
DX: E87.6 Hypokalemia (principal); J18.9 Pneumonia, unspecified organism; I12.9 Hypertensive chronic kidney disease with stage 1 through stage 4 chronic kidney disease, or unspecified chronic kidney disease; N18.9 Chronic kidney disease, unspecified; E11.9 Type 2 diabetes mellitus without complications; Z79.84 Long term (current) use of oral hypoglycemic drugs; Z79.01 Long term (current) use of anticoagulants
CPT/HCPCS: 36415; 71045; 80048; 87633; 94640; 99284; A9270

== ENCOUNTER 2023-09-18 12:19 | Outpatient (CLI) | payer OTHER ==
[2023-09-18 17:43] LABS: BASOPHILS # (AUTO) 0.1 10^3/uL (0.0-0.1); BASOPHILS % (AUTO) 0.6 %; EOSINOPHILS # (AUTO) 0.1 10^3/uL (0.0-0.7); EOSINOPHILS % (AUTO) 1.3 %; HCT - HEMATOCRIT 37.1 % (42.0-52.0); HGB - HEMOGLOBIN 11.4 g/dL (14.0-18.0); LYMPHOCYTES # (AUTO) 1.8 10^3/uL (1.5-3.5); LYMPHOCYTES % (AUTO) 20.5 %; MEAN CORPUSCULAR HEMOGLOBIN 27.2 pg (27.0-31.0); MEAN CORPUSCULAR HGB CONC 30.7 g/dL (32.0-36.0); MEAN CORPUSCULAR VOLUME 88.5 fL (80.0-94.0); MONOCYTES # (AUTO) 0.6 10^3/uL (0.0-1.0); MONOCYTES % (AUTO) 6.7 %; NEUTROPHILS % (AUTO) 70.5 %; PLT - PLATELET COUNT 231 10^3/uL (130-450); RED BLOOD COUNT 4.19 10^6/uL (4.70-6.10); RED CELL DISTRIBUTION WIDTH 13.2 % (12.0-15.0); WHITE BLOOD COUNT 8.6 x10^3/uL (4.8-10.8)
[2023-09-18 17:54] LABS: ALBUMIN 3.6 g/dL (3.2-5.5); ALBUMIN/GLOBULIN RATIO 1.3 (1.0-2.2); BILIRUBIN,TOTAL 0.4 mg/dL (0.2-1.0); CREATININE 1.8 mg/dL (0.6-1.3); POTASSIUM 3.4 mmol/L (3.5-4.5); TOTAL PROTEIN 6.4 g/dL (6.4-8.9)
[2023-09-18 21:53] LABS: ESTIMATED AVERAGE GLUCOSE 180 mg/dL (70-100); HEMOGLOBIN A1c% 7.9 % (4.27-6.07)
== END 2023-09-18 12:20 | disposition home or self-care (01) ==
LOC: LAB.N 12:19
PROVIDERS: ATTEND Nurse Practitioner Family
DX: E11.22 Type 2 diabetes mellitus with diabetic chronic kidney disease (principal); N18.30 Chronic kidney disease, stage 3 unspecified; E87.6 Hypokalemia
CPT/HCPCS: 36415; 80053; 83036; 85025

== ENCOUNTER 2024-01-07 12:22 | Outpatient (CLI) | payer OTHER | END 2024-01-07 12:23 | disposition home or self-care (01) | LOC: DI 12:22 | PROVIDERS: ATTEND Nurse Practitioner Family | DX: R06.02 Shortness of breath (principal) | CPT/HCPCS: 93307 ==

== ENCOUNTER 2024-03-25 06:13 | Outpatient (CLI) | payer OTHER | END 2024-03-25 23:59 | disposition critical access hospital (66) | LOC: EMS 06:13 | DX: I95.9 Hypotension, unspecified (principal); R00.0 Tachycardia, unspecified; I49.9 Cardiac arrhythmia, unspecified; R05.9 Cough, unspecified; Z20.822 Contact with and (suspected) exposure to COVID-19 | CPT/HCPCS: A0425; A0429 ==

== ENCOUNTER 2024-03-25 06:29 | Observation (INO) | payer OTHER ==
[2024-03-25 06:54] LABS: BILIRUBIN,URINE NEGATIVE (NEGATIVE); GLUCOSE, URINE (UA) NEGATIVE (NEGATIVE); KETONES,URINE (UA) NEGATIVE (NEGATIVE); LEUKOCYTE ESTERASE, URINE MODERATE (NEGATIVE); NITRITE,URINE NEGATIVE (NEGATIVE); OCCULT BLOOD,URINE MODERATE (NEGATIVE); PH,URINE 8.5 PH (5.0-7.5); PROTEIN,URINE 100 mg/dL (NEGATIVE); UROBILINOGEN,URINE 0.2 (NORMAL) E.U./dL (NORMAL)
[2024-03-25 07:05] LABS: CLARITY,URINE CLOUDY (CLEAR)
[2024-03-25 07:06] LABS: BACTERIA,URINE Moderate /HPF (None Seen); CRYSTALS,URINE >50 Triple Phos /LPF; RBC,URINE 0-5 /HPF (0-5); SQUAMOUS EPITHELIAL CELL,UR NONE SEEN (<= Few)
[2024-03-25 07:13] LABS: ALBUMIN 3.9 g/dL (3.2-5.5); ALBUMIN/GLOBULIN RATIO 1.1 (1.0-2.2); BILIRUBIN,TOTAL 0.6 mg/dL (0.2-1.0); CALCIUM 9.8 mg/dL (8.5-10.3); CREATININE 2.1 mg/dL (0.6-1.3); POTASSIUM 4.1 mmol/L (3.5-4.5); TOTAL PROTEIN 7.3 g/dL (6.4-8.9); TROPONIN I HIGH SENSITIVITY 12.7 ng/L (2.3-19.7)
[2024-03-25 07:16] LABS: BASOPHILS % (AUTO) 0.3 %; EOSINOPHILS % (AUTO) 0.2 %; HCT - HEMATOCRIT 38.2 % (42.0-52.0); HGB - HEMOGLOBIN 11.8 g/dL (14.0-18.0); LYMPHOCYTES # (AUTO) 0.4 10^3/uL (1.5-3.5); LYMPHOCYTES % (AUTO) 2.9 %; MEAN CORPUSCULAR HEMOGLOBIN 27.8 pg (27.0-31.0); MEAN CORPUSCULAR HGB CONC 30.9 g/dL (32.0-36.0); MEAN CORPUSCULAR VOLUME 89.9 fL (80.0-94.0); MEAN PLATELET VOLUME 10.7 fL (7.4-11.4); MONOCYTES # (AUTO) 0.7 10^3/uL (0.0-1.0); NEUTROPHILS # (AUTO) 12.4 10^3/uL (1.5-6.6); NEUTROPHILS % (AUTO) 91.1 %; PLT - PLATELET COUNT 212 10^3/uL (130-450); RED BLOOD COUNT 4.25 10^6/uL (4.70-6.10); RED CELL DISTRIBUTION WIDTH 14.6 % (12.0-15.0); WHITE BLOOD COUNT 13.6 x10^3/uL (4.8-10.8)
[2024-03-25] MEDS: SODIUM CHLORIDE 0.9% 1,000 ML IV STA (07:29)
--- NOTE | 2024-03-25 07:30 | ED Physician Documentation ---
History of Present Illness - Stated complaint Stated Complaint: GLF - Chief complaint Chief Complaint: General - History obtained from History obtained from: Patient, EMS - History of Present Illness Timing: Today - Additonal information Additional information: Kevin Quevedo is an 83-year-old male with a history of COPD and type 2 diabetes who was in his home today he got up from his bed to go into the living room to watch television and collapsed in the living room. He states that his legs gave out on him. He tells me that he has been having increasing shortness of breath and fatigue and weakness over the past week. He has not had any vomiting or diarrhea. He does have a Ovalles catheter in place that has been in place for more than a year. He has not had a fever. He does have COVID in the household right now with a daughter who is sick with COVID. The patient indicates to me that he would like his shortness of breath addressed today. He has previously been on a blood thinner and he is no longer taking the blood thinner. He tells me he did not injure himself with this fall he does have an abrasion to his right elbow. No apparent trauma to the head. Review of Systems Constitutional: denies: Fever Eyes: denies: Decreased vision Ears: denies: Ear pain Nose: reports: Congestion. denies: Rhinorrhea / runny nose Throat: denies: Sore throat Cardiac: denies: Chest pain / pressure, Palpitations, Pedal edema, Calf pain Respiratory: reports: Dyspnea, Cough, Wheezing GI: denies: Abdominal Pain, Nausea, Vomiting, Constipation, Diarrhea : reports: Other (ovalles with clear urine). denies: Dysuria, Frequency Skin: denies: Rash Musculoskeletal: denies: Neck pain, Back pain, Extremity pain Neurologic: reports: Generalized weakness. denies: Focal weakness, Numbness, Difficulty speaking, Confused, Altered mental status, Headache, Head injury, LOC PD PAST MEDICAL HISTORY - Past Medical History Past Medical History: Yes Cardiovascular: Atrial fibrillation, Coronary artery disease, Hypertension Respiratory: COPD Neuro: None Endocrine/Autoimmune: Type 2 diabetes GI: GERD : Frequency, Nocturia Psych: None Musculoskeletal: Osteoarthritis Derm: Other - Past Surgical History Past Surgical History: Yes Cardiovascular: Coronary stent Derm: Skin cancer surgery - Present Medications Home Medications: Ambulatory Orders Medication Instructions Recorded Confirmed Carvedilol 12.5 mg PO DAILY 11/14/16 03/25/24 lisinopriL [Lisinopril] 40 mg PO DAILY 11/14/16 03/25/24 Albuterol 2.5 mg INH BID PRN 11/17/16 03/25/24 Zinc 50 mg PO HS 11/17/16 03/25/24 Amlodipine Besylate [Norvasc] 1 tab PO DAILY 11/22/22 03/25/24 Clopidogrel [Plavix] 1 tab PO DAILY 11/22/22 03/25/24 Mesalamine [Asacol Hd] 2 tab PO BID 11/22/22 03/25/24 Rosuvastatin Calcium [Crestor] 1 tab PO QPM 11/22/22 03/25/24 Tamsulosin [Flomax] 1 cap PO DAILY 11/22/22 03/25/24 glipiZIDE [Glucotrol] 1 tab PO BID 11/22/22 03/25/24 - Allergies Allergies/Adverse Reactions: Allergies Allergy/AdvReac Type Severity Reaction Status Date / Time Sulfa (Sulfonamide Allergy Unknown Verified 03/25/24 06:46 Antibiotics) - Social History Does the pt smoke?: No Smoking Status: Never smoker Does the pt drink ETOH?: Yes Does the pt have substance abuse?: No - Immunizations Immunizations are current?: Yes - POLST Patient has POLST: No PD ED PE NORMAL - Vitals Vital signs reviewed: Yes (hypertensive with a wide pulse pressure) - General General: Alert and oriented X 3, No acute distress, Well developed/nourished - HEENT HEENT: Atraumatic, PERRL, EOMI - Neck Neck: Supple, no meningeal sign, No bony TTP - Cardiac Cardiac: No murmur, Other (tachy to 100) - Respiratory Respiratory: No respiratory distress, Other (diminished breath sounds bilat) - Abdomen Abdomen: Soft, Non tender - Back Back: No CVA TTP, No spinal TTP - Derm Derm: Normal color, Warm and dry, No rash - Extremities Extremities: No deformity, No edema - Neuro Neuro: Alert and oriented X 3, algebra tutor 2-12 intact, No motor deficit, No sensory deficit, Normal speech Eye Opening: Spontaneous Motor: Obeys Commands Verbal: Oriented GCS Score: 15 - Psych Psych: Normal mood, Normal affect Results - Vitals Vitals: Vital Signs - 24 hr 03/25/24 03/25/24 03/25/24 06:33 07:19 07:45 Temperature 36.2 C L Heart Rate 86 94 103 H Respiratory 18 27 H 29 H Rate Blood Pressure 143/62 H 102/53 L 131/62 H O2 Saturation 95 98 100 03/25/24 03/25/24 07:52 08:16 Temperature Heart Rate 88 117 H Respiratory 2 L 24 Rate Blood Pressure 122/65 O2 Saturation 94 Oxygen O2 Source Room air - EKG (time done) 0642 EKG releavant findings:: EKG personally interpreted by author of this note. Relevant findings are: Rate: Rate (enter#) (103) Rhythm: Atrial fibrillation Intervals: RBBB Compare to prior EKG: Changed from prior EKG (SPT 11-22-22 the rate is faster the rhythm has changed to afib and RBBB has developed. ) Computer interpretation: Disagree with computer (I believe this shows RBBB the computer calls interventricular delay) - Labs Labs: Laboratory Tests 03/25/24 03/25/24 03/25/24 06:40 06:40 06:44 WBC 13.6 H RBC 4.25 L Hgb 11.8 L Hct 38.2 L MCV 89.9 MCH 27.8 MCHC 30.9 L RDW 14.6 Plt Count 212 MPV 10.7 Neut # (Auto) 12.4 H Lymph # (Auto) 0.4 L Gates # (Auto) 0.7 Eos # (Auto) 0.0 Baso # (Auto) 0.0 Absolute Nucleated RBC 0.00 Nucleated RBC % 0.0 Sodium 137 Potassium 4.1 Chloride 108 Carbon Dioxide 20 L Anion Gap 9.0 BUN 42 H Creatinine 2.1 H Estimated GFR (MDRD) 30 L Glucose 212 H Calcium 9.8 Total Bilirubin 0.6 AST 11 ALT 16 Alkaline Phosphatase 90 Troponin I High Sens 12.7 Total Protein 7.3 Albumin 3.9 Globulin 3.4 Albumin/Globulin Ratio 1.1 Lipase 17 Urine Color Urine Clarity Urine pH Ur Specific Wise Urine Protein Urine Glucose (UA) Urine Ketones Urine Occult Blood Urine Nitrite Urine Bilirubin Urine Urobilinogen Ur Leukocyte Esterase Urine RBC Urine WBC Ur Squamous Epith Cells Urine Crystals Urine Bacteria Urine Culture Comments Nasal Adenovirus (PCR) NOT DETECTED Nasal B. parapertussis DNA (PCR) NOT DETECTED Nasal Coronavir 229E PCR NOT DETECTED Nasal Coronavir HKU1 PCR NOT DETECTED Nasal Coronavir NL63 PCR NOT DETECTED Nasal Coronavir OC43 PCR NOT DETECTED Nasal Enterovir/Rhinovir PCR NOT DETECTED Nasal Influenza B PCR NOT DETECTED Nasal Influenza A PCR NOT DETECTED Nasal Parainfluen 1 PCR NOT DETECTED Nasal Parainfluen 2 PCR NOT DETECTED Nasal Parainfluen 3 PCR NOT DETECTED Nasal Parainfluen 4 PCR NOT DETECTED Nasal RSV (PCR) NOT DETECTED Nasal B.pertussis DNA PCR NOT DETECTED Nasal C.pneumoniae (PCR) NOT DETECTED Dewey Human Metapneumo PCR NOT DETECTED Nasal M.pneumoniae (PCR) NOT DETECTED Nasal SARS-CoV-2 (PCR) DETECTED A 03/25/24 06:50 WBC RBC Hgb Hct MCV MCH MCHC RDW Plt Count MPV Neut # (Auto) Lymph # (Auto) Gates # (Auto) Eos # (Auto) Baso # (Auto) Absolute Nucleated RBC Nucleated RBC % Sodium Potassium Chloride Carbon Dioxide Anion Gap BUN Creatinine Estimated GFR (MDRD) Glucose Calcium Total Bilirubin AST ALT Alkaline Phosphatase Troponin I High Sens Total Protein Albumin Globulin Albumin/Globulin Ratio Lipase Urine Color YELLOW Urine Clarity CLOUDY Urine pH 8.5 H Ur Specific Wise <=1.005 Urine Protein 100 H Urine Glucose (UA) NEGATIVE Urine Ketones NEGATIVE Urine Occult Blood MODERATE H Urine Nitrite NEGATIVE Urine Bilirubin NEGATIVE Urine Urobilinogen 0.2 (NORMAL) Ur Leukocyte Esterase MODERATE H Urine RBC 0-5 Urine WBC 6-10 H Ur Squamous Epith Cells NONE SEEN Urine Crystals >50 Triple Phos Urine Bacteria Moderate H Urine Culture Comments INDICATED Nasal Adenovirus (PCR) Nasal B. parapertussis DNA (PCR) Nasal Coronavir 229E PCR Nasal Coronavir HKU1 PCR Nasal Coronavir NL63 PCR Nasal Coronavir OC43 PCR Nasal Enterovir/Rhinovir PCR Nasal Influenza B PCR Nasal Influenza A PCR Nasal Parainfluen 1 PCR Nasal Parainfluen 2 PCR Nasal Parainfluen 3 PCR Nasal Parainfluen 4 PCR Nasal RSV (PCR) Nasal B.pertussis DNA PCR Nasal C.pneumoniae (PCR) Dewey Human Metapneumo PCR Nasal M.pneumoniae (PCR) Nasal SARS-CoV-2 (PCR) - Rads (name of study) chest Relevant Findings:: Prelim report reviewed (Impression: Small right effusion with right basilar atelectasis versus infection.), EMP independent interpretation of test, See rad report Procedures - IVC sono (time) 0720 Bedside IVC sono: IVC measures (cm) (1.02), Dehydration (est 1-2 liter deficit) PD Medical Decision Making - ED course Complexity details: reviewed old records, reviewed results, re-evaluated patient, considered differential, d/w patient Reviewed Lab Results: We reviewed a complete blood count showing an elevated white blood cell count of 13.6 hemoglobin and hematocrit were low at 11.8 and 38.2 respectively with similar results over the past 5 months. Platelets are normal at 212,000 chemistries show normal electrolytes BUN elevated at 42 creatinine elevated at 2.1 again similar to his values over the past year.Urinalysis shows a pH of 8.5 with a low specific gravity 1.005 and moderate occult blood moderate leukocyte Estrace 0-5 red blood cells and 6-10 white blood cells. Moderate bacteria seen in the specimen as well and a culture is indicated. My interpretation of these laboratory results are the patient appears to have evidence of infection with elevated white blood cell count he appears stable with his blood counts and his kidney function. He does have elevated blood glucose consistent with ongoing infection and his level of dehydration. I am uncertain whether the urine is pathologic infection or colonization in this patient who has a Ovalles catheter in place for over 1 year. His nasal swab is positive for COVID. ED course: 83-year-old lexi Quevedo presents to the emergency department after a collapse in his home. COVID is presently in his home and the patient has COVID. In addition he has a significant infiltrate on his chest x-ray much worse than his priors. His chief complaint weakness and shortness of breath. He has some improvement with the use of a DuoNeb treatment. He does have oxygen saturation of 95%. He is tachycardic periodically up to 120 with atrial fibrillation. I interrogated his IVC with POCUS and found he was 1 to 2 L deficit in volume and he has a history of congestive heart failure with a ejection fraction of 35 to 40% and diastolic dysfunction. I provided a liter of saline for the diastolic dysfunction. With the discovery of the significant infiltrate on his chest x- ray I discussed with the patient hospitalization secondary to the comorbidities that he has. Hypertension, type 2 diabetes, afib paroxysmal, renal failure, indwelling ovalles and COPD. The patient considered treatment at home but felt too weak to be able to get to the bathroom. 09:09 I consulted the hospitalist who will come to the ED for evaluation. Departure - Departure Disposition: ED Place in Observation Clinical Impression: Paroxysmal a-fib, COPD exacerbation, Dehydration Pneumonia Qualifiers: Pneumonia type: due to unspecified organism Laterality: right Lung location: lower lobe of lung Qualified Code(s): J18.9 - Pneumonia, unspecified organism Forms: PCP List
[2024-03-25] MEDS: IPRATROPIUM/ALBUTEROL 3 ML NEB INH STA (07:39)
[2024-03-25 07:52] LABS: B. PARAPERTUSSIS- RESP PCR PAN NOT DETECTED; B. PERTUSSIS- RESP PCR PANEL NOT DETECTED; C. PNEUMONIAE- RESP PCR PANEL NOT DETECTED; CORONAVIRUS 229E-RESP PCR NOT DETECTED; CORONAVIRUS HKU1-RESP PCR NOT DETECTED; CORONAVIRUS NL63-RESP PCR NOT DETECTED; CORONAVIRUS OC43-RESP PCR NOT DETECTED; HUMAN METAPNEUMOVIRUS NOT DETECTED; INFLUENZA A- RESP PCR PANEL NOT DETECTED; INFLUENZA B - RESP PCR PANEL NOT DETECTED; M. PNEUMONIAE- RESP PCR PANEL NOT DETECTED; PARAINFLUENZA VIRUS 1 NOT DETECTED; PARAINFLUENZA VIRUS 2 NOT DETECTED; PARAINFLUENZA VIRUS 3 NOT DETECTED; PARAINFLUENZA VIRUS 4 NOT DETECTED; RHINOVIRUS/ENTEROVIRUS NOT DETECTED; RSV- RESP PCR PANEL NOT DETECTED
[2024-03-25 07:54] LABS: SARS-CoV-2 -RESP PCR PANEL DETECTED
--- NOTE | 2024-03-25 08:21 | XRAY Report ---
PROCEDURE: Chest 1V INDICATIONS: dyspnea TECHNIQUE: One view of the chest was acquired. COMPARISON: 08/26/2023 FINDINGS: Surgical changes and devices: None. Lungs and pleura: Right basilar consolidation versus atelectasis. Small right effusion. Mediastinum: Mediastinal contours appear normal. Heart size is normal. Bones and chest wall: No suspicious bony lesions. Overlying soft tissues appear unremarkable. IMPRESSION: Small right effusion with right basilar atelectasis versus infection. Reviewed by: Hilario Roa MD on 03/25/2024 8:19 AM PDT Approved by: Hilario Roa MD on 03/25/2024 8:19 AM PDT Station ID: [id number]
[2024-03-25] MEDS: cefTRIAXone 1 GM in SODIUM CHLORIDE 0.9% MINIBAG 100 ML IV STA (08:24)
[2024-03-25] MEDS: AZITHROMYCIN INJ 500 MG in SODIUM CHLORIDE 0.9% 250 ML IV STA (09:06)
[2024-03-25] MEDS ORDERED: SODIUM CHLORIDE FLUSH 0.9% 10 ML SYRINGE IVP PRN (10:27)
[2024-03-25] MEDS ORDERED: ONDANSETRON ODT 4 MG TABLET TL PRN (10:27)
--- NOTE | 2024-03-25 10:44 | HISTORY & PHYSICAL EXAMINATION ---
Chief Complaint - Chief Complaint Chief Complaint: Ground Level Fall History of Present Illness - Admitted From Admitted From:: Emergency Room - History Obtained From Records Reviewed: Yes History obtained from: Patient and emergency room physician, Dr. Haynes - History of Present Illness HPI Comment/Other: Kevin Quevedo is a 83-year-old man who presented to the emergency room after ground-level fall. Patient has a past medical history significant for COPD, type 2 diabetes mellitus and chronic systolic heart failure. Patient reports she has been complaining of increased fatigue and weakness for the past week. He reports she has had some intermittent chills and fever. He reports he stood up and his legs could not support him and he collapsed. He reports no injury secondary to the fall. He reports his daughter has COVID. Workup in the emergency room revealed patient also had COVID-19. Workup in the emergency room revealed a leukocytosis of 13.6 K. Chest x-ray performed in the emergency room also revealed a small right effusion with right basilar opacity. History - Past Medical History Cardiovascular: reports: Atrial fibrillation, Coronary artery disease, Hypertension Respiratory: reports: COPD Neuro: reports: None Endocrine/Autoimmune: reports: Type 2 diabetes GI: reports: GERD : reports: Frequency, Nocturia Psych: reports: None Musculoskeletal: reports: Osteoarthritis Derm: reports: Other MRSA Hx?: No - Past Surgical History Cardiovascular: reports: Coronary stent Derm: reports: Skin cancer surgery - Family & Social History Family History: Mother: Diabetes, Type 2, Father: Cancer (Unknown cancer) Living Situation: With spouse/s.o. - Substance History Use: Uses substance without health or social issues: Alcohol (Socially. Hasn't drank since New Years) - POLST Patient has POLST: No Meds/Allgy - Home Medications Home Medications: Ambulatory Orders Medication Instructions Recorded Confirmed Carvedilol 12.5 mg PO DAILY 11/14/16 03/25/24 lisinopriL [Lisinopril] 40 mg PO DAILY 11/14/16 03/25/24 Albuterol 2.5 mg INH BID PRN 11/17/16 03/25/24 Zinc 50 mg PO HS 11/17/16 03/25/24 Amlodipine Besylate [Norvasc] 1 tab PO DAILY 11/22/22 03/25/24 Clopidogrel [Plavix] 1 tab PO DAILY 11/22/22 03/25/24 Mesalamine [Asacol Hd] 2 tab PO BID 11/22/22 03/25/24 Rosuvastatin Calcium [Crestor] 1 tab PO QPM 11/22/22 03/25/24 Tamsulosin [Flomax] 1 cap PO DAILY 11/22/22 03/25/24 glipiZIDE [Glucotrol] 1 tab PO BID 11/22/22 03/25/24 - Allergies Allergies/Adverse Reactions: Allergies Allergy/AdvReac Type Severity Reaction Status Date / Time Sulfa (Sulfonamide Allergy Unknown Verified 03/25/24 06:46 Antibiotics) Review of Systems - Constitutional Constitutional: reports: Fatigue, Fever, Chills, Weakness Exam - Vital Signs Vital Signs: Vital Signs x48h Temp Pulse Resp BP Pulse Ox 03/25/24 08:16 117 H 24 122/65 94 03/25/24 07:52 88 2 L 03/25/24 07:45 103 H 29 H 131/62 H 100 03/25/24 07:19 94 27 H 102/53 L 98 03/25/24 06:33 36.2 C L 86 18 143/62 H 95 - Physical Exam General Appearance: positive: No acute distress, Alert Eyes Bilateral: positive: Normal inspection, Conjunctivae nml Neck: positive: Nml inspection, No JVD Respiratory: positive: Other (Good air exchange in all lung atkinson no wheezing no crackles.) Cardiovascular: positive: Other (Positive S1-S2 no extra heart sounds.) Abdomen: positive: Other (Soft nontender nondistended positive bowel sounds) Skin: positive: No rash Extremities: positive: Non-tender Conclusion/Plan - Problem List (1) Community acquired pneumonia Conclusion/Plan: Patient's pneumonia severity index score is 124 which places his mortality at 9.3%. Patient is at least moderate risk for morbidity/mortality secondary to his pneumonia and will be admitted to observation for the next 242 to 48 hours. Plan: 1. Admit patient to observation 2. Initiate treatment with Ceftriaxone and azithromycin.This most likely represents a secondary pneumonia from his COVID infection. (2) COVID-19 Conclusion/Plan: Patient's pneumonia severity index is 124 which places his mortality at 9.3%. He is at least at moderate risk for more due to the mortality continue supportive care. (3) Chronic systolic heart failure Conclusion/Plan: Stable. Continue to monitor. Reinitiate treatment with carvedilol 6.25 mg twice daily. Increase dose as tolerated (4) Chronic renal failure Conclusion/Plan: Review of patient's chart reveals that his creatinine has been stable at approximately 2.0 and has been stable for at least 1 year. Avoid nephrotoxic agents. Continue to monitor BUNs/creatinine - Lab Results Fish Bones: 03/25/24 06:44 03/25/24 06:40
[2024-03-25] MEDS: CHOLECALCIFEROL 25 MCG TABLET PO SCH (17:29)
[2024-03-25] MEDS: SODIUM CHLORIDE FLUSH 0.9% 10 ML SYRINGE IVP SCH (17:29)
[2024-03-25] MEDS: INSULIN LISPRO 300 UNIT/3 ML PEN SUBQ SCH ×2 (17:29→17:30)
[2024-03-25] MEDS: HEPARIN 5,000 UNIT/ML VIAL SUBQ SCH (21:33)
[2024-03-25] MEDS: carvediloL 12.5 MG TABLET PO SCH (21:33)
[2024-03-26 05:28] LABS: BASOPHILS % (AUTO) 0.4 %; EOSINOPHILS % (AUTO) 0.1 %; HCT - HEMATOCRIT 30.2 % (42.0-52.0); HGB - HEMOGLOBIN 9.8 g/dL (14.0-18.0); LYMPHOCYTES # (AUTO) 1.2 10^3/uL (1.5-3.5); LYMPHOCYTES % (AUTO) 14.9 %; MEAN CORPUSCULAR HEMOGLOBIN 28.7 pg (27.0-31.0); MEAN CORPUSCULAR HGB CONC 32.5 g/dL (32.0-36.0); MEAN CORPUSCULAR VOLUME 88.3 fL (80.0-94.0); MEAN PLATELET VOLUME 9.7 fL (7.4-11.4); MONOCYTES # (AUTO) 1.1 10^3/uL (0.0-1.0); NEUTROPHILS # (AUTO) 5.4 10^3/uL (1.5-6.6); NEUTROPHILS % (AUTO) 70.3 %; PLT - PLATELET COUNT 157 10^3/uL (130-450); RED BLOOD COUNT 3.42 10^6/uL (4.70-6.10); RED CELL DISTRIBUTION WIDTH 14.8 % (12.0-15.0); WHITE BLOOD COUNT 7.7 x10^3/uL (4.8-10.8)
[2024-03-26] MEDS: IPRATROPIUM/ALBUTEROL 3 ML NEB INH PRN (05:35)
[2024-03-26] MEDS: ACETAMINOPHEN 325 MG TABLET PO PRN (05:42)
[2024-03-26 05:48] LABS: CALCIUM 8.9 mg/dL (8.5-10.3); CREATININE 2.3 mg/dL (0.6-1.3); MAGNESIUM 1.6 mg/dL (1.7-2.3); PHOSPHORUS 3.3 mg/dL (2.5-5.0); POTASSIUM 3.6 mmol/L (3.5-4.5)
[2024-03-26 07:40] VITALS: O2SAT 95
[2024-03-26] MEDS: cefTRIAXone 1 GM in SODIUM CHLORIDE 0.9% MINIBAG 100 ML IV SCH (08:51)
[2024-03-26] MEDS: MULTIVITAMIN W/MINERALS TABLET PO SCH (08:52)
[2024-03-26] MEDS: CLOPIDOGREL 75 MG TABLET PO SCH (08:52)
[2024-03-26] MEDS: AZITHROMYCIN INJ 500 MG in SODIUM CHLORIDE 0.9% 250 ML IV SCH (10:05)
--- NOTE | 2024-03-26 14:23 | Discharge Plan ---
Discharge Plan Problem Reviewed?: Yes Disposition: Home, Self Care Condition: Good Diet: Diabetic Activity Restrictions: Activity as Tolerated Shower Restrictions: No Assistance Devices: Walker Weight Bearing: Full Weight Instruction Topics: Pneumonia Health Concerns: History of Present Illness: Kevin Quevedo is a 83-year-old man who presented to the emergency room after ground-level fall. Patient has a past medical history significant for COPD, type 2 diabetes mellitus and chronic systolic heart failure. Patient reports she has been complaining of increased fatigue and weakness for the past week. He reports she has had some intermittent chills and fever. He reports he stood up and his legs could not support him and he collapsed. He reports no injury secondary to the fall. He reports his daughter has COVID. Workup in the emergency room revealed patient also had COVID-19. Workup in the emergency room revealed a leukocytosis of 13.6 K. Chest x-ray performed in the emergency room also revealed a small right effusion with right basilar opacity. Hospital Course: Mr. Quevedo was admitted to the hospital under the status of observation due to the fact that his pneumonia severity index was 124 which places him in mortality of approximately 9.3%. In the emergency room he received ceftriaxone and azithromycin myosin intravenously for a possible community-acquired pneumonia in his right lower lobe. Empiric treatment for a community-acquired pneumonia will continue with Augmentin 500 mg tablet 1 tablet twice daily for 5 days. He was evaluated by physical therapy and it was recommended he continue to use a front wheeled walker. Home health has been ordered for the patient. On hospital day 2, his leukocytosis has resolved and he continues to maintain oxygen saturation greater than 92% on room air. He remains afebrile with stable vital signs. Patient is stable for discharge today. CODE STATUS: DO NOT RESUSCITATE. Plan of Treatment: 1. Continue all medications as prescribed. 2. Please return to the emergency room, an acute care clinic or your primary care provider if you develop increasing shortness of breath, chest pain or fever greater than 101.5 F. 3. Recommend Mr. Quevedo undergo a chest x-ray in approximately 8 weeks to evaluate for resolution of right lower lobe opacity. 4. Follow-up with primary care provider, Matilda Dunlap in 2-4 weeks. 5. Patient's blood pressure medications have been decreased to carvedilol 6.25 mg twice daily and amlodipine 5 mg daily. Lisinopril has been discontinued. Recommend patient discuss his blood pressure medications with his primary care provider. 6. Patient reports he was taking apixaban but does not remember the dose. He reports he stopped taking apixaban because of hematuria. Recommend he discuss initiating treatment with apixaban at 2.5 mg twice daily with his primary care provider. (It is unclear to me what his dose is at this time and he may benefit from taking a lower dose of apixaban). I have recommended that he take an aspirin a day until he sees his primary care provider Care Goals: Goal of care is to return to baseline function prior to illness. Assessment: (1) Community acquired pneumonia Conclusion/Plan: Complete course of treatment with Augmentin 500 mg twice daily. (2) COVID-19 Conclusion/Plan: Continue supportive care. (3) Chronic systolic heart failure Conclusion/Plan: Restart outpatient medications for hypertension with carvediol and withhold lisinipril and amdipline until he follows up with his primary care physician. (4) Chronic renal failure Conclusion/Plan: Review of patient's chart reveals that his creatinine has been stable at approximately 2.0 and has been stable for at least 1 year. Avoid nephrotoxic agents. Follow-Up Care: Home Health - RN No Smoking: If you smoke, Please STOP! Call for help. Follow-up with: Matilda Dunlap ARNP [Primary Care Provider] -
--- NOTE | 2024-03-26 14:48 | PHARMACY PROGRESS NOTE ---
- Best Possible Medication History Admit Date and Time: 03/25/24 1027 Processed by: Pharmacy Medications reviewed in ED?: No Medication History completed: Yes Patient Interview: Completed (Unable to confirm with patient's pharmacy as secondary source, interviewed patient only) As the person ultimately responsible for medication therapy, providers are able to order a medication from an existing home medication list in [facility] via the "Reconcile Routine" prior to Confirmation of that medication by arch support maker. Such practice is discouraged except when the physician, in their clinical judgment, deems that a medical need exists for a medication without regard to previous use.
[2024-03-26 16:13] VITALS: BP 157/80
--- NOTE | 2024-03-26 17:50 | DISCHARGE SUMMARY ---
Discharge Summary Admit Date: 03/25/24 Discharge Date: 03/26/24 Discharging Provider: Norbert Meza MD Primary Care Provider: Matilda Dunlap Code Status: Do Not Attempt Resuscitation Condition at Discharge: Good Discharge Disposition: 01 Home, Self Care Discharge Facility Name: [facility] - DIAGNOSES Admission Diagnoses: (1) Community acquired pneumonia (2) COVID-19 (3) Chronic systolic heart failure (4) Chronic renal failure Discharge Diagnoses with Status of Each Condition: (1) Community acquired pneumonia (2) COVID-19 (3) Chronic systolic heart failure (4) Chronic renal failure (5) Hypertension (6) Chron's Disease (7) Benigh Prostatic Hypertrophy (8) Chronic Obstructive Pulmonary Disease - HPI History of Present Illness: Kevin Quevedo is a 83-year-old man who presented to the emergency room after ground-level fall. Patient has a past medical history significant for COPD, type 2 diabetes mellitus and chronic systolic heart failure. Patient reports she has been complaining of increased fatigue and weakness for the past week. He reports she has had some intermittent chills and fever. He reports he stood up and his legs could not support him and he collapsed. He reports no injury secondary to the fall. He reports his daughter has COVID. Workup in the emergency room revealed patient also had COVID-19. Workup in the emergency room revealed a leukocytosis of 13.6 K. Chest x-ray performed in the emergency room also revealed a small right effusion with right basilar opacity. - HOSPITAL COURSE Hospital Course: Mr. Quevedo was admitted to the hospital under the status of observation due to the fact that his pneumonia severity index was 124 which places him in mortality of approximately 9.3%. In the emergency room he received ceftriaxone and azithromycin myosin intravenously for a possible community-acquired pneumonia in his right lower lobe. Empiric treatment for a community-acquired pneumonia will continue with Augmentin 500 mg tablet 1 tablet twice daily for 5 days. He was evaluated by physical therapy and it was recommended he continue to use a front wheeled walker. Home health has been ordered for the patient. On hospital day 2, his leukocytosis has resolved and he continues to maintain oxygen saturation greater than 92% on room air. He remains afebrile with stable vital signs. Patient is stable for discharge today. CODE STATUS: DO NOT RESUSCITATE. - ALLERGIES Allergies/Adverse Reactions: Allergies Allergy/AdvReac Type Severity Reaction Status Date / Time Sulfa (Sulfonamide Allergy Unknown Verified 03/25/24 06:46 Antibiotics) - MEDICATIONS Home Medications: Ambulatory Orders Medication Instructions Recorded Confirmed Albuterol 2.5 mg INH BID PRN 11/17/16 03/25/24 Zinc 50 mg PO HS 11/17/16 03/25/24 Mesalamine [Asacol Hd] 2 tab PO BID 11/22/22 03/25/24 Rosuvastatin Calcium [Crestor] 1 tab PO QPM 11/22/22 03/25/24 Tamsulosin [Flomax] 1 cap PO DAILY 11/22/22 03/25/24 Amox/Clav 500/125 [Augmentin 1 tablet PO Q12H 5 Days #10 tablet 03/26/24 500/125] Aspirin EC [Ecotrin] 81 mg PO DAILY #30 tablet 03/26/24 Azithromycin 250 mg PO DAILY 3 Days #3 tablet 03/26/24 amLODIPine [Norvasc] 5 mg PO DAILY #30 tablet 03/26/24 carvediloL [Coreg] 6.25 mg PO BID #30 tablet 03/26/24 - PHYSICAL EXAM AT DISCHARGE General Appearance: positive: No acute distress, Alert Eyes Bilateral: positive: Conjunctivae nml Neck: positive: No JVD, Trachea midline Respiratory: positive: Other (Good air exchange in all lung atkinson no wheezing no crackles.) Cardiovascular: positive: Other (Positive S1-S2 no extra heart sounds.) Abdomen: positive: Other (Soft nontender nondistended positive bowel sounds) Skin: positive: No rash Extremities: positive: No pedal edema Neurologic/Psychiatric: positive: Oriented x3 - LABS Result Diagrams: 03/26/24 05:24 03/26/24 05:24 - FOLLOW UP Follow Up: Please follow-up with Matilda BOWLING. - TIME SPENT Time Spent in Discharge (Minutes): 32 (32 minutes coordinating discharge and discussing medications upon discharge with daughter and patient. )
== END 2024-03-26 16:46 | disposition home or self-care (01) ==
LOC: EDUNIT# → EDBD → ED 06:29 → MS2 10:27
PROVIDERS: ADMIT Internal Medicine; ATTEND Internal Medicine
DX: U07.1 COVID-19 (principal); J18.9 Pneumonia, unspecified organism; I50.22 Chronic systolic (congestive) heart failure; N18.9 Chronic kidney disease, unspecified; I13.0 Hypertensive heart and chronic kidney disease with heart failure and stage 1 through stage 4 chronic kidney disease, or unspecified chronic kidney disease; K50.90 Crohn's disease, unspecified, without complications; J44.0 Chronic obstructive pulmonary disease with (acute) lower respiratory infection; E11.22 Type 2 diabetes mellitus with diabetic chronic kidney disease; I25.10 Atherosclerotic heart disease of native coronary artery without angina pectoris; N40.1 Benign prostatic hyperplasia with lower urinary tract symptoms; R35.0 Frequency of micturition; R35.1 Nocturia; I45.10 Unspecified right bundle-branch block; I48.0 Paroxysmal atrial fibrillation; Z20.818 Contact with and (suspected) exposure to other bacterial communicable diseases; Z20.828 Contact with and (suspected) exposure to other viral communicable diseases; Z66 Do not resuscitate; Z79.02 Long term (current) use of antithrombotics/antiplatelets; Z79.84 Long term (current) use of oral hypoglycemic drugs; Z79.899 Other long term (current) drug therapy; Z80.9 Family history of malignant neoplasm, unspecified; Z83.3 Family history of diabetes mellitus; Z88.2 Allergy status to sulfonamides; Z91.81 History of falling; Z95.5 Presence of coronary angioplasty implant and graft; Z96.0 Presence of urogenital implants
CPT/HCPCS: 36415; 71045; 80048; 80053; 81001; 83690; 83735; 84100; 84484; 85025; 87086; 87633; 93005; 94640; 96361; 96365; 96366; 96367; 96372; 97162; 97166; 97530; 97535; 99285; A9270; G0378

== ENCOUNTER 2024-06-03 19:08 | Emergency (ER) | payer OTHER ==
--- NOTE | 2024-06-03 19:57 | XRAY Report ---
PROCEDURE: Chest 2V INDICATIONS: cough/SOA TECHNIQUE: 2 views of the chest were acquired. COMPARISON: 03/25/2024 and 08/26/2023. FINDINGS: Surgical changes and devices: None. Lungs and pleura: Small to moderate right pleural effusion with right basilar atelectasis. Underlyin g right lower lobe infiltrate cannot be excluded. Left lung is clear. No pneumothorax. Mediastinum: Mediastinal contours appear normal. Heart size is normal. Bones and chest wall: No suspicious bony lesions. Overlying soft tissues appear unremarkable. IMPRESSION: Small to moderate right pleural effusion with right basilar infiltrate/atelectasis. No pneumothorax. Left lung is clear. Reviewed by: Sam Ngo MD on 06/03/2024 7:56 PM PDT Approved by: Sam Ngo MD on 06/03/2024 7:56 PM PDT Station ID: [id number]
--- NOTE | 2024-06-03 21:50 | ED Physician Documentation ---
History of Present Illness - Stated complaint Stated Complaint: SOA - Chief complaint Chief Complaint: Resp - History obtained from History obtained from: Patient - History of Present Illness Timing: Today Pain level max: 0 Pain level now: 0 - Additonal information Additional information: 83-year-old male history of COPD states he has been short of breath for the past several months. His home health nurse listened to his lungs and stated that she could not hear much, therefore she stated he should go to the emergency department. The patient states that he is only on albuterol at home for his COPD. Not on any long-acting beta agonist or inhaled steroids. [facility] He does not know his home medications other than albuterol and something for high blood pressure. No fevers. No chills. No cough or congestion. Nothing makes it better or worse. Review of Systems Constitutional: denies: Fever, Chills Nose: denies: Rhinorrhea / runny nose, Congestion Cardiac: denies: Chest pain / pressure Respiratory: reports: Dyspnea (chronic, unchanged). denies: Cough, Hemoptysis GI: denies: Abdominal Pain, Nausea, Vomiting, Diarrhea : denies: Dysuria, Frequency, Hesitancy Skin: denies: Rash PD PAST MEDICAL HISTORY - Past Medical History Past Medical History: Yes Cardiovascular: Atrial fibrillation, Coronary artery disease, Hypertension Respiratory: COPD Neuro: CVA Endocrine/Autoimmune: Type 2 diabetes GI: GERD : Frequency, Nocturia HEENT: None Psych: None Musculoskeletal: Osteoarthritis Derm: Other - Past Surgical History Past Surgical History: Yes Cardiovascular: Coronary stent Derm: Skin cancer surgery - Present Medications Home Medications: Ambulatory Orders Medication Instructions Recorded Confirmed Albuterol 2.5 mg INH BID PRN 11/17/16 03/25/24 Zinc 50 mg PO HS 11/17/16 03/25/24 Mesalamine [Asacol Hd] 2 tab PO BID 11/22/22 03/25/24 Rosuvastatin Calcium [Crestor] 1 tab PO QPM 11/22/22 03/25/24 Tamsulosin [Flomax] 1 cap PO DAILY 11/22/22 03/25/24 Amox/Clav 500/125 [Augmentin 1 tablet PO Q12H 5 Days #10 tablet 03/26/24 500/125] Aspirin EC [Ecotrin] 81 mg PO DAILY #30 tablet 03/26/24 Azithromycin 250 mg PO DAILY 3 Days #3 tablet 03/26/24 amLODIPine [Norvasc] 5 mg PO DAILY #30 tablet 03/26/24 carvediloL [Coreg] 6.25 mg PO BID #30 tablet 03/26/24 Fluticasone Propion/Salmeterol 1 each IH BID #1 each 06/03/24 [Advair 250-50 Diskus] - Allergies Allergies/Adverse Reactions: Allergies Allergy/AdvReac Type Severity Reaction Status Date / Time Sulfa (Sulfonamide Allergy Unknown Verified 06/03/24 19:17 Antibiotics) - Social History Does the pt smoke?: No Smoking Status: Former smoker Does the pt drink ETOH?: Yes Does the pt have substance abuse?: No - Immunizations Immunizations are current?: Yes - POLST Patient has POLST: No PD ED PE NORMAL - Vitals Vital signs reviewed: Yes - General General: Alert and oriented X 3, No acute distress - HEENT HEENT: Moist mucous membranes - Neck Neck: Supple, no meningeal sign - Cardiac Cardiac: RRR, Strong equal pulses - Respiratory Respiratory: No respiratory distress, Other (Mildly diminished breath sounds bilaterally. Otherwise clear lung sounds. No wheezing. No stridor.) - Abdomen Abdomen: Soft, Non tender, Non distended - Derm Derm: Warm and dry - Extremities Extremities: No edema - Neuro Neuro: Alert and oriented X 3 Results - Vitals Vitals: Vital Signs - 24 hr 06/03/24 06/03/24 06/03/24 19:17 21:35 22:01 Temperature 36.8 C Heart Rate 76 64 60 Respiratory 20 16 20 Rate Blood Pressure 146/67 H 159/71 H O2 Saturation 96 95 06/03/24 22:52 Temperature 36.7 C Heart Rate 70 Respiratory 16 Rate Blood Pressure 147/76 H O2 Saturation 96 Oxygen O2 Source Room air - Labs Labs: Laboratory Tests 06/03/24 21:05 Nasal Adenovirus (PCR) NOT DETECTED Nasal B. parapertussis DNA (PCR) NOT DETECTED Nasal Coronavir 229E PCR NOT DETECTED Nasal Coronavir HKU1 PCR NOT DETECTED Nasal Coronavir NL63 PCR NOT DETECTED Nasal Coronavir OC43 PCR NOT DETECTED Nasal Enterovir/Rhinovir PCR NOT DETECTED Nasal Influenza B PCR NOT DETECTED Nasal Influenza A PCR NOT DETECTED Nasal Parainfluen 1 PCR NOT DETECTED Nasal Parainfluen 2 PCR NOT DETECTED Nasal Parainfluen 3 PCR NOT DETECTED Nasal Parainfluen 4 PCR NOT DETECTED Nasal RSV (PCR) NOT DETECTED Nasal B.pertussis DNA PCR NOT DETECTED Nasal C.pneumoniae (PCR) NOT DETECTED Dewey Human Metapneumo PCR NOT DETECTED Nasal M.pneumoniae (PCR) NOT DETECTED Nasal SARS-CoV-2 (PCR) NOT DETECTED - Rads (name of study) Chest x-ray Relevant Findings:: Final report received, See rad report PD Medical Decision Making - ED course Complexity details: reviewed results, re-evaluated patient, considered differential, d/w patient, d/w family ED course: Patient with a continued small pleural effusion on chest x-ray. No hypoxia or respiratory distress. Feels better after DuoNeb treatment. He is only on albuterol at home for his COPD. We will add Advair. Will have him follow-up with his doctor for continued treatment of his COPD. We will hold off on steroids at this time as this does not appear to be an acute exacerbation, rather this is chronic shortness of breath. He confirms that this is no worse than usual. He only came in because his visiting home health nurse told him that he had diminished breath sounds and needed to come in. No fevers. No evidence of infection. Patient counseled regarding signs and symptoms for which I believe and urgent re-evaluation would be necessary. Patient with good understanding of and agreement to plan and is comfortable going home at this time This document was made in part using voice recognition software. While efforts are made to proofread this document, sound alike and grammatical errors may occur. Departure - Departure Disposition: 01 Home, Self Care Clinical Impression: Pleural effusion COPD (chronic obstructive pulmonary disease) Qualifiers: COPD type: unspecified COPD Qualified Code(s): J44.9 - Chronic obstructive pulmonary disease, unspecified Condition: Good Instructions: COPD Dc, ED Effusion Pleural Follow-Up: Matilda Dunlap ARNP [Primary Care Provider] - Within 1 week Prescriptions: Fluticasone Propion/Salmeterol [Advair 250-50 Diskus] 1 each IH BID #1 each Comments: As we discussed you do have a small pleural effusion, this has been present for several months. It appears that your COPD is undertreated, we will start you on Advair, this is a twice daily medication that should help with your breathing. Please follow-up with your doctor for further care. You can use the albuterol as needed for rescue inhaler. Your prescription was sent to [facility] in [place]. Forms: PCP List Discharge Date/Time: 06/03/24 22:52
[2024-06-03] MEDS: IPRATROPIUM/ALBUTEROL 3 ML NEB INH STA (22:01)
[2024-06-03 22:04] LABS: B. PARAPERTUSSIS- RESP PCR PAN NOT DETECTED; B. PERTUSSIS- RESP PCR PANEL NOT DETECTED; C. PNEUMONIAE- RESP PCR PANEL NOT DETECTED; CORONAVIRUS 229E-RESP PCR NOT DETECTED; CORONAVIRUS HKU1-RESP PCR NOT DETECTED; CORONAVIRUS NL63-RESP PCR NOT DETECTED; CORONAVIRUS OC43-RESP PCR NOT DETECTED; HUMAN METAPNEUMOVIRUS NOT DETECTED; INFLUENZA A- RESP PCR PANEL NOT DETECTED; INFLUENZA B - RESP PCR PANEL NOT DETECTED; M. PNEUMONIAE- RESP PCR PANEL NOT DETECTED; PARAINFLUENZA VIRUS 1 NOT DETECTED; PARAINFLUENZA VIRUS 2 NOT DETECTED; PARAINFLUENZA VIRUS 3 NOT DETECTED; PARAINFLUENZA VIRUS 4 NOT DETECTED; RHINOVIRUS/ENTEROVIRUS NOT DETECTED; RSV- RESP PCR PANEL NOT DETECTED; SARS-CoV-2 -RESP PCR PANEL NOT DETECTED
[2024-06-03 23:02] VITALS: BP 147/76; O2SAT 96
== END 2024-06-03 22:52 | disposition home or self-care (01) ==
LOC: ED 19:08
DX: J90 Pleural effusion, not elsewhere classified (principal); J44.9 Chronic obstructive pulmonary disease, unspecified; Z87.891 Personal history of nicotine dependence
CPT/HCPCS: 87633; 94640; 94664; 99284